=== PATIENT | male | born 1970 | race Caucasian/White ===

== ENCOUNTER 2019-12-26 08:44 | Emergency (ER) | payer OTHER, SELFPAY ==
--- NOTE | ~2019-12-26 | XR_ITS ---
EXAMINATION: XR knee LT min 4V DATE: 12/26/2019 09:16 INDICATION: Twisting injury and generalized left knee pain. TECHNIQUE: Anteroposterior, 2 oblique and crosstable lateral views of the left knee were obtained COMPARISON: None. FINDINGS: Alignment is normal. No fracture. Joint spaces appear normal. No joint effusion/layering lipohemarth rosis. Soft tissues are unremarkable. IMPRESSION: 1. Negative left knee radiographs. Reviewed, dictated and finalized at location A.
[2019-12-26 08:58] VITALS: BP 128/94; PULSE 74; RESP 16; TEMP 36.9; O2SAT 97
--- NOTE | 2019-12-26 09:52 | ED.LOWEXIN ---
HPI - Extremity Injury (Lower) General Chief Complaint: Extremity Injury, Lower Stated Complaint: left knee pain Time Seen by Provider: 12/26/19 09:43 Source: patient and RN notes reviewed Mode of arrival: ambulatory Limitations: no limitations History of Present Illness HPI Narrative: Patient presents today complaining of an injury to his left knee. Injury was sustained approximately 1 month ago when he was getting out of the cab of his 18 wheel truck and slipped. States pain started out posterior. The posterior pain has resolved, but has now spread laterally. Denies numbness or tingling in the leg or foot. Currently rates his pain 8/10. Pain increases with bending or full flexion. He has been taking Aleve without relief. States that he read report at work, but his employer is claiming this is not a Workmen's Compensation claim, so patient is here on his own. MD complaint: knee injury Related Data Home Medications Medication Instructions Recorded Confirmed No Home Medications 12/26/19 12/26/19 Allergies Allergy/AdvReac Type Severity Reaction Status Date / Time No Known Allergies Allergy Verified 12/26/19 09:07 Review of Systems Review of Systems: Narrative: CONSTITUTIONAL: Denies body aches, fever, chills, or sweats. EYES: Denies visual changes, redness, or discharge. ENT: Denies rhinorrhea, congestion, sore throat, or otalgia. CARDIOVASCULAR: Denies chest pain, palpitations, or edema. RESPIRATORY: Denies cough or dyspnea. GASTROINTESTINAL: Denies abdominal pain, nausea, vomiting, or diarrhea. GENITOURINARY: Denies dysuria or hematuria. SKIN: Denies rash, itching, or wounds. MUSCULOSKELETAL: Denies back pain, or myalgia. NEUROLOGIC: Denies headache, numbness, tingling, or weakness. PSYCH: Denies depression or anxiety. PMFSH Social History Social History Gender identity (if verbalized by the patient): Male Comments At time of signature, I have reviewed and agree with nursing past medical, surgical, social and family history unless otherwise noted. Please see nursing chart for further information. There is no relevant family history pertinent to the presenting complaint Exam Narrative: Exam Narrative: GENERAL: Well-appearing, well-nourished, and in no acute distress. HEAD: Normocephalic, atraumatic. EYES: EOMI. No redness or drainage. Conjunctivae normal. ENT: Mucous membranes pink and moist. NECK: Normal AROM. CHEST: No respiratory distress. EXTREMITIES: Left knee: Tenderness to the lateral joint line to palpation. No medial joint line tenderness. No posterior tenderness. No tenderness of the patella or patellar tendon. Distal sensation intact. Capillary refill normal. Posterior tibial pulse normal. Pain increased with full extension and with flexion. SKIN: Warm, dry, no rash. Capillary refill normal. Normal skin turgor. NEURO: No focal deficits. Alert and oriented x3. Gait steady. PSYCH: Normal affect. No signs of depression or anxiety. Course Vital Signs Vital signs: Vital Signs Temperature 98.4 F 12/26/19 08:58 Pulse Rate 74 12/26/19 08:58 Respiratory Rate 16 12/26/19 08:58 Blood Pressure 128/94 H 12/26/19 08:58 Pulse Oximetry 97 12/26/19 08:58 Temperature 98.4 F 12/26/19 08:58 Pulse Rate 74 12/26/19 08:58 Respiratory Rate 16 12/26/19 08:58 Blood Pressure 128/94 H 12/26/19 08:58 Pulse Oximetry 97 12/26/19 08:58 Reviewed. Pt has been instructed to follow up with his PCP regarding his elevated blood pressure today. MDM - Extremity Injury (Lower) Differential Diagnosis Differential diagnosis: Likely other (Knee sprain, knee effusion, dislocation, ligament injury, meniscus injury) Imaging Data Radiologist's impression: ITS Impressions Knee X-Ray 12/26/19 09:19 IMPRESSION: 1. Negative left knee radiographs. Critical Care Time Critical Care Time Critical Care Time: No Discharge Plan Discharge Clinical Impression
== END 2019-12-26 10:06 | disposition home or self-care (01) ==
PROVIDERS: Emergency Provider Nurse Practitioner; PCP Emergency Medicine
DX: S89.92XA Unspecified injury of left lower leg, initial encounter (principal); W18.49XA Other slipping, tripping and stumbling without falling, initial encounter
CPT/HCPCS: 73564; 99213; G0463

== ENCOUNTER 2024-11-13 06:22 | Emergency (ER) | payer OTHER, SELFPAY ==
--- OUTSIDE RECORDS SUMMARY | 2024-11-13 06:25 | XMS_ITS | Data Portability ---
Author Organization [place] [facility] [employer], Main Office Address [address] [place] [address] Care Team Providers Care Public Health Physician Name Role Phone MARSHA JENNINGS Primary Care Provider MARSHA JENNINGS Referring Provider Assessment Encounter Date Assessment Date Assessment LastModified by Organization Details LastModified Time 08/24/2024 08/24/2024 53-year-old male presents for evaluation of his left knee. 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 He has had pain since then. He has tried a course of conservative management he had a cortisone injection about 2 years ago which helped a little bit. He has been taking ibuprofen. He does report catching and popping in his knee, and he was previously told he had a torn meniscus but did not get anything done at that point. Review of systems per patient questionnaire Physical exam: He is 6 ft 2, 400 lb, BMI 51.4. He has tenderness palpation of the medial joint line as well as lateral joint line. Range of motion 0-120, limited by body habitus. Positive Juan M's. Stable ligaments. X-rays reviewed, demonstrating mild degenerative changes of patellofemoral joint and moderate degenerative changes of the medial compartment. He has joint space narrowing and small osteophytes We will begin with a course of conservative management with meloxicam and physical therapy. Orders for those were given. We will see him back in 6 weeks after course of treatment. At that time if he does not have improvement, we would consider doing cortisone injection and/or an MRI. We also discussed weight loss and he understands that he should decrease his BMI. [email or web address] Not available 08/25/2024:00:19 10/12/2024 10/12/2024 53-year-old male presents for follow-up of his left knee. We previously treated him with a course of conservative management with anti-inflammatori es physical therapy. He reports no difference, still having symptoms in his knee. He has tenderness palpation of the medial joint line as well as lateral joint line. Range of motion 0-120, limited by body habitus. Positive Juan M's. Stable ligaments. BMI 51 Given his persistent symptoms despite conservative management so far we discussed the next step would be a cortisone injection which she wanted to proceed with an tolerated well. We will also order MRI to evaluate the soft tissues, ligaments, and menisci. We will see him back after the scan. He is in agreement with the plan. [email or web address] Not available 10/12/2024 14:53:20 Plan of Treatment Reminders Order Date Submit Date Provider Last Modified By Organization Details Last Modified Time Details Appointments None recorded. Lab None recorded. Referral physical therapist referral - Please contact pt to schedule apt for L knee. Thanks 2024 025 [facility] [address], [address], [place], [address], 00:04:21 Procedures injection/ aspiration joint/burs a (PROC) 2024 025 [email or web address] 1 In-Office Order, Internal Use Only DO Not Attach Compendium DO Not Attach Compendium, Do Not Delete/merge, [id number] 14:15:20 Surgeries None recorded. Imaging MRI, knee, w/o contrast - Please provide pt with disc of images to bring to follow up apt. Thanks 2024 025 [facility], [address], [address] [address], [place], [address], 16:23:56 XR, knee 2024 025 [email or web address] [facility] [place], [address], [place], [address], 08:38:42 Medication Orders bupivacain e HCl 0.5 % (5 mg/mL) injection solution [address] [id number], [address], [place], [place], [phone], 23:07:25 Kenalog 10 mg/mL suspension for injection [address] [id number], [address], [place], [place], [phone], 23:07:25 Mobic 15 mg tablet [address] [id number], [address], [place], [place], [phone], 12:27:32 Patient TargetsNo targets recorded. Patient InstructionsNo instructions recorded. Reason for Referral Physical Therapist Referral for Pain of left knee joint L knee Please contact pt to schedule apt for L knee. Thanks Referring Physician: Owen Smith, Orthopedic Surgery, Encounter Date: 08/24/2024 Results Created Date Observation Date Name Description Value Unit Range Abnormal Flag Note LastModifiedBy Organization Detail LastModifiedTime 08/24/19 25 XR, knee No observ ation record ed. [email or web address] [facility] [place] [address], [place], [address], 08/24/2024 11:17:33 Result Notes None recorded. Problems Name Problem SNOMED Code Status Onset Date Resolution Date Notes Provider Name and Address Organization Details Recorded Time Pain of left knee joint [id number] Active 2024 CLAUDETTE Sutton [facility] 11:17:29 Problem Notes None recorded. Procedures Surgical History Date Name Laterality Status Provider Name and Address Organization Details Recorded Time Ortho - Cortisone Injection completed Owen Smith MD [address], [address], [place], [address], [facility] 10/12/2024 14:52:26 Imaging Results Imaging Date Name Status LastModified by Organiz ation Details LastModified Time 08/24/2024 XR, knee completed [email or web address] [facility] [place] [address], [place], [address], 08/24/2024 11:17:33 Procedure Notes None recorded. Medical Equipment None Reported. Allergies No known drug allergies Medications Name Sig Start Date Stop Date Status Note LastModified by Organization Details LastModified Time meloxicam 15 mg tablet TAKE 1 TABLET BY MOUTH EVERY DAY active Not Available Not Available No t Available bupivacaine HCl 0.5 % (5 mg/mL) injection solution Take 4 mL by injection route. 2024 active Not Available Not Available Not Avai lable Kenalog 10 mg/mL suspension for injection Take 1 mL by injection route. 2024 active [facility]: 0003- [id number]- 20 Not Available Not Available Not Available fluticasone propionate 50 mcg/actuati on nasal spray,suspe nsion SHAKE LIQUID AND USE 2 SPRAYS IN EACH NOSTRIL DAILY 08/24 completed Not Available Not Available Not Available Vitals Date Recorded Body height Body mass index (BMI) Body weight Provider Name and Address Organization Details Last Updated DateTime 08/24/2024 187.96 cm 51.4 kg/m2 841106.95 g Saba Coley [facility] 08/24/2024 11:16:12 Date Recorded Body height Body mass index (BMI) Body weight Provider Name and Address Organization Details Last Updated DateTime 10/12/2024 187.96 cm 51.4 kg/m2 337265.95 g ERIKA Kennedy [facility] 10/12/2024 14:02:30 Social History None recorded. Functional Status None recorded. Mental Status None recorded. Family History Nothing Reported. Medical History No medical history recorded. Past Encounters Encounter ID Performer Location Encounter Start Date Encounter Closed Date Diagnosis/Indication Diagnosis SNOMED-CT Code Diagnosis ICD10 Code Diagnosis Note [id number] Owen Smith MD [facility] [place] [address] [place] [address] 08/24/2024 10:58:11 08/24/2024 12:28:18 Pain of left knee joint [id number] 62177 M25.386 [id number] Owen Smith MD [facility] [place] [address] [place] [address] 10/12/2024 13:58:49 10/12/2024 14:58:12 Pain of left knee joint [id number] 82667 M25.562 Health Concerns Section Related Observation LastModified by Organization Detai ls LastModified Time None Recorded Concern Status LastModified by Organization Details LastModified Time None Recorded Advance Directives Directive None Recorded Payers Encounter Date Sequence Insurance Name Policy Number Policy Bella Covered Member ID Bella Member ID Guarantor Name 08/24/2024 1 [facility] [id number] Selwyn Castillo [id number] Selwyn Castillo 10/12/2024 1 [facility] [id number] Selwyn Castillo [id number] Selwyn Castillo
--- OUTSIDE RECORDS SUMMARY | 2024-11-13 06:25 | XMS_ITS | Clinical Summary ---
Author Organization [facility] Address [address] [place] [address] Care Team Providers Care Horse Stud Worker Name Role Phone Sb Harris MD Primary Care Provider [phone] Allergies No known active allergies Medications No known medications Active Problems No known active problems Surgical History Surgery Date Site/Laterality Comments KNEE SURGERY N/A Social History Tobacco Use Types Packs/Day Years Used Date Smoking Tobacco: Former Smokeless Tobacco: Never Personal Safety Answer Date Recorded Getting School Help Needed Not on file 09/11 Sex and Gender Information Value Date Recorded Sex Assigned at Not on file Legal Sex Male 2: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 Gender Identity Male 07/17/2020 12:41 PM PIPED POCKET MACHINE OPERATOR Sexual Orientation Straight 07/17/2020 12 :41 PM PIPED POCKET MACHINE OPERATOR Obstetrics History Last Filed Vital Signs Vital Sign Reading Time Taken Comments Blood Pressure 132/84 07/19/2020 3:12 PM PIPED POCKET MACHINE OPERATOR Pulse 85 07/19/2020 3:12 PM PIPED POCKET MACHINE OPERATOR Temperature 36.5 C (97.7 F) 07/19/2020 3:12 PM PIPED POCKET MACHINE OPERATOR Respiratory Rate - - Oxygen Saturation - - Inhaled Oxygen Concentration - - Weight 161.7 kg (356 lb 6.4 oz) 07/19/2020 3:12 PM PIPED POCKET MACHINE OPERATOR Height 188 cm (6' 2 ) 07/19/2020 3:12 PM PIPED POCKET MACHINE OPERATOR Body Mass Index 45.76 07/19/2020 3:12 PM PIPED POCKET MACHINE OPERATOR Plan of Treatment Not on file Insurance [facility] H[facility]PPO Address: [address] [place] [address] [facility] [facility] H[facility]/PPO Address: [address] [address] [place] [address] Care Teams Horse Stud Worker Relationship Specialty Start Date End Date Sb Harris MD [address] [facility] [address] [place] [address] PCP - General 06/18/18
--- OUTSIDE RECORDS SUMMARY | 2024-11-13 06:25 | XMS_ITS | Referral Summary ---
Author Organization [facility] Address [address] [place] [address] Care Team Providers Care Test Hole Driller Name Role Phone Sb Harris MD Primary Care Provider [phone] Allergies No known active allergies Medications No known medications Active Problems No known active problems Social History Tobacco Use Types Packs/Day Years Used Date Smoking Tobacco: Former Smokeless Tobacco: Never Personal Safety Answer Date Recorded Getting School Help Needed Not on file 09/11 Sex and Gender Information Value Date Recorded Sex Assigned at Not on file Legal Sex Male 2:47 PM BRIGADIER Gender Identity Male 07/17/2020 12:41 PM BRIGADIER Sexual Orientation Straight 07/17/2020 12 :41 PM BRIGADIER Last Filed Vital Signs Vital Sign Reading Time Taken Comments Blood Pressure 132/84 07/19/2020 3:12 PM BRIGADIER Pulse 85 07/19/2020 3:12 PM BRIGADIER Temperature 36.5 C (97.7 F) 07/19/2020 3:12 PM BRIGADIER Respiratory Rate - - Oxygen Saturation - - Inhaled Oxygen Concentration - - Weight 161.7 kg (356 lb 6.4 oz) 07/19/2020 3:12 PM BRIGADIER Height 188 cm (6' 2 ) 07/19/2020 3:12 PM BRIGADIER Body Mass Index 45.76 07/19/2020 3:12 PM BRIGADIER Plan of Treatment Not on file Insurance [facility] H[facility]/PPO Address: [address] [address] [place] [address] [facility] [facility] H[facility]/PPO Address: [address] [address] [place] [address] Care Teams Test Hole Driller Relationship Specialty Start Date End Date Sb Harris MD [address] [facility] [address] [place] [address] PCP - General 06/18/18
--- NOTE | 2024-11-13 06:30 | PC.NURSE ---
Pt presents to ED c/o R calf pain, radiating to thigh area. Pt febrile temp 101.3 oral, has not been able to keep anything down since kiley.
[2024-11-13 06:34] VITALS: BP 153/86; PULSE 109; RESP 22; TEMP 38.5; O2SAT 97
--- NOTE | 2024-11-13 06:46 | ED_ITS ---
HPI - Skin/Abscess/Foreign Bdy General Chief complaint: Extremity Injury, Lower <Beth Stockton MD - Last Filed: 11/13/24 07:07> Stated complaint: rle infection <Beth Stockton MD - Last Filed: 11/13/24 07:07> Time Seen by Provider: 11/13/24 06:29 <Beth Stockton MD - Last Filed: 11/13/24 07:07> History of Present Illness HPI narrative: Thursday patient noticed he was feeling fevers and chills, and a red rash to his right leg that has steadily gotten worse, yesterday he noticed a small blister that he tried to pop nothing came out, today it got worse so he finally came in. <Beth Stockton MD - Last Filed: 11/13/24 07:07> Related Data Allergies/Adverse reactions: Allergies Allergy/AdvReac Type Severity Reaction Status Date / Time No Known Allergies Allergy Verified 05/18/24 11:15 <Beth Stockton MD - Last Filed: 11/13/24 07:07> Review of Systems 2 Review of Systems: All systems reviewed & are unremarkable except as noted in HPI and below <Beth Stockton MD - Last Filed: 11/13/24 07:07> PMFSH Past Medical History Medical History: Medical History (Updated 11/13/24 @ 08:27 by Mary Knight MD) Fungal infection Groin ringworm Rash Skin lesion Conjunctivitis Sinusitis Fatigue Suppurative otitis media of right ear without spontaneous rupture of tympanic membrane Vitamin D deficiency Sinus congestion Primary osteoarthritis involving multiple joints Plantar fasciitis of left foot LUIS E (obstructive sleep apnea) Loud snoring Impacted cerumen of left ear Hypogonadism male Decreased hearing of left ear Daytime sleepiness Cough Screening cholesterol level <Beth Stockotn MD - Last Filed: 11/13/24 07:07> Social History Social History: Social History Smoking status: Never smoker Second hand tobacco smoke exposure: No Alcohol intake: never Substance use: never Substance use type: does not use Do You Feel Safe in your Home?: Yes Lack of Transportation: No Lack of Food: Sometimes True Current Housing: I Have Housing Concerned About Future Housing: YES Difficulty Paying Gas/Electric Bills: YES Difficulty Paying for Meds: YES Currently Unemployed: No Education: High School Diploma/GED Difficulty w/ Childcare or Family Care: No Living arrangements: with family Gender identity (if verbalized by the patient): Male Spiritual care concerns: No Agree to blood products: Yes <Beth Stockton MD - Last Filed: 11/13/24 07:07> Exam 2 Narrative: EXAMINATION OF ORGAN SYSTEMS/BODY AREAS: Constitutional: Vital signs per nursing GENERAL: Appears slightly uncomfortable but nontoxic HEAD: Normal with no signs of head trauma. EYES: EOMI, conjunctiva normal ENT: Hearing grossly intact LUNGS: Nonlabored breathing. HEART: [Regular rate and rhythm], normal right DP pulse ABD: [Soft], [nontender to palpation] EXT: Normal range of motion; no obvious swelling to right lower extremity compared to left but there is redness SKIN: Redness and tenderness to right lower leg, no exquisite tenderness, tiny spot NEURO: [Alert and oriented x 3. No gross focal sensory or strength deficits.] PSYCH: Normal affect <Beth Stockton MD - Last Filed: 11/13/24 07:07> Course Course Emergency Course: Patient signed out to me pending result of labs and reassessment. Lactic acid is normal the patient does have a leukocytosis with white count 15. Patient is reassessed at approximately 8:10 a.m.. He is resting comfortably. The area of infection has been outlined with skin marker and does not cover any joint lines as it remains inferior to knee and superior to ankle. He states he has felt better but overall doing ok. DIscussed / offered admission for continued IV antibiotics but patient would prefer to be discharged home and trial conservative PO antibiotic therapy. Through shared decision making, This is also reasonable and we discussed the need for close follow up as well as strict emergency department return precautions. He confirms he has a PCP. 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 He denies wanting or needing a work note. Vital signs have normalized including fever that has defervesced and is no longer tachycardic. Given the leukocytosis, will provide double coverage of antibiotics. <Mary Knight MD - Last Filed: 11/13/24 08:30> Vital Signs Vital signs: Vital Signs Temperature 101.3 F H 11/13/24 06:34 Pulse Rate 109 H 11/13/24 06:34 Respiratory Rate 22 H 11/13/24 06:34 Blood Pressure 153/86 H 11/13/24 06:34 Pulse Oximetry 97 11/13/24 06:34 Temperature 99.1 F 11/13/24 08:21 Pulse Rate 95 11/13/24 08:21 Respiratory Rate 19 11/13/24 08:21 Blood Pressure 121/72 11/13/24 08:21 Pulse Oximetry 98 11/13/24 08:21 <Beth Stockton MD - Last Filed: 11/13/24 07:07> Vital Signs Temperature 101.3 F H 11/13/24 06:34 Pulse Rate 109 H 11/13/24 06:34 Respiratory Rate 22 H 11/13/24 06:34 Blood Pressure 153/86 H 11/13/24 06:34 Pulse Oximetry 97 11/13/24 06:34 Temperature 99.1 F 11/13/24 08:21 Pulse Rate 95 11/13/24 08:21 Respiratory Rate 19 11/13/24 08:21 Blood Pressure 121/72 11/13/24 08:21 Pulse Oximetry 98 11/13/24 08:21 <Mary Knight MD - Last Filed: 11/13/24 08:30> MDM - Skin/Abscess/Foreign Bdy MDM Narrative Medical decision making narrative: Patient presenting with signs, symptoms consistent with cellulitis, but he does have a fever here and is tachycardic so sepsis workup initiated, fluid started, IV antibiotics ordered. Will jaylin area of infection with skin marker. Patient will be signed out to oncoming ER physician pending re-evaluation and labs. <Beth Stockton MD - Last Filed: 11/13/24 07:07> Lab Data Result diagrams: 11/13/24 06:57 11/13/24 06:57 <Beth Stockton MD - Last Filed: 11/13/24 07:07> Labs: Lab Results 11/13/24 Range/Units 06:57 WBC 15.0 H (4.5-10.0) K/mm3 RBC 4.75 (4.6-6.20) M/mm3 Hgb 13.6 L (14.0-18.0) g/dL Hct 43.2 (42.0-52.0) % MCV 90.9 (80-100) fl MCH 28.6 (26-34) pg MCHC 31.5 L (32-36) g/dl RDW 13.7 (11.5-14.5) % Plt Count 192 (150-375) k/mm3 MPV 8.9 (7.4-10.4) fl Immature Gran % (Auto) Not Reportable Neut % (Auto) Not Reportable Lymph % (Auto) Not Reportable Heard % (Auto) Not Reportable Eos % (Auto) Not Reportable Baso % (Auto) Not Reportable Lymph # (Auto) Not Reportable Heard # (Auto) Not Reportable Eos # (Auto) Not Reportable Baso # (Auto) Not Reportable Abs Immat Gran (auto) Not Reportable Absolute Neuts (auto) Not Reportable Absolute Nucleated RBC Not Reportable Total Counted 100 Neutrophils % (Manual) 84 H (46-73) % Band Neutrophils % 11 H (0-6) % Lymphocytes % (Manual) 3 L (18-44) % Monocytes % (Manual) 2 L (3-9) % Nucleated RBC % Not Reportable Abs Neuts (Manual) 14.25 H (1.3-6.7) K/mm3 Abs Lymphs (Manual) 0.45 L (1.1-4.5) K/mm3 Abs Monocytes (Manual) 0.30 (0.1-0.90) K/mm3 Platelet Estimate Adequate (Adequate) Schistocytes None seen Sodium 132 L (137-145) mmol/L Potassium 3.8 (3.4-5.0) mmol/L Chloride 101 (98-107) mmol/L Carbon Dioxide 23 (22-30) mmol/L Anion Gap 8 (4-12) mmol/L BUN 21 H (9-20) mg/dL Creatinine 0.94 (0.7-1.3) mg/dL Estim Creat Clear Calc 140 ml/min Estimated GFR > 60 (59 - ) Glucose 122 H (65-110) mg/dL Lactic Acid 1.0 (0.7-2.0) mmol/L Calcium 8.9 (8.4-10.2) mg/dL Total Bilirubin 1.2 (0.2-1.3) mg/dL AST 32 (17-59) U/L ALT 35 (6-50) U/L Alkaline Phosphatase 72 (38-126) U/L Total Protein 8.0 (6.3-8.2) g/dL Albumin 4.1 (3.5-5.1) g/dL <Beth Stockton MD - Last Filed: 11/13/24 07:07> Lab Results 11/13/24 Range/Units 06:57 WBC 15.0 H (4.5-10.0) K/mm3 RBC 4.75 (4.6-6.20) M/mm3 Hgb 13.6 L (14.0-18.0) g/dL Hct 43.2 (42.0-52.0) % MCV 90.9 (80-100) fl MCH 28.6 (26-34) pg MCHC 31.5 L (32-36) g/dl RDW 13.7 (11.5-14.5) % Plt Count 192 (150-375) k/mm3 MPV 8.9 (7.4-10.4) fl Immature Gran % (Auto) Not Reportable Neut % (Auto) Not Reportable Lymph % (Auto) Not Reportable Heard % (Auto) Not Reportable Eos % (Auto) Not Reportable Baso % (Auto) Not Reportable Lymph # (Auto) Not Reportable Heard # (Auto) Not Reportable Eos # (Auto) Not Reportable Baso # (Auto) Not Reportable Abs Immat Gran (auto) Not Reportable Absolute Neuts (auto) Not Reportable Absolute Nucleated RBC Not Reportable Total Counted 100 Neutrophils % (Manual) 84 H (46-73) % Band Neutrophils % 11 H (0-6) % Lymphocytes % (Manual) 3 L (18-44) % Monocytes % (Manual) 2 L (3-9) % Nucleated RBC % Not Reportable Abs Neuts (Manual) 14.25 H (1.3-6.7) K/mm3 Abs Lymphs (Manual) 0.45 L (1.1-4.5) K/mm3 Abs Monocytes (Manual) 0.30 (0.1-0.90) K/mm3 Platelet Estimate Adequate (Adequate) Schistocytes None seen Sodium 132 L (137-145) mmol/L Potassium 3.8 (3.4-5.0) mmol/L Chloride 101 (98-107) mmol/L Carbon Dioxide 23 (22-30) mmol/L Anion Gap 8 (4-12) mmol/L BUN 21 H (9-20) mg/dL Creatinine 0.94 (0.7-1.3) mg/dL Estim Creat Clear Calc 140 ml/min Estimated GFR > 60 (59 - ) Glucose 122 H (65-110) mg/dL Lactic Acid 1.0 (0.7-2.0) mmol/L Calcium 8.9 (8.4-10.2) mg/dL Total Bilirubin 1.2 (0.2-1.3) mg/dL AST 32 (17-59) U/L ALT 35 (6-50) U/L Alkaline Phosphatase 72 (38-126) U/L Total Protein 8.0 (6.3-8.2) g/dL Albumin 4.1 (3.5-5.1) g/dL <Mary Knight MD - Last Filed: 11/13/24 08:30> Critical Care Time Critical Care Time Critical Care Time: Yes <Beth Stockton MD - Last Filed: 11/13/24 07:07> Total Critical Care Time: 31 <Beth Stockton MD - Last Filed: 11/13/24 07:07> Discharge Plan Discharge Clinical Impression: Sepsis, Acute hyponatremia, Leukocytosis Cellulitis Qualifiers: Site of cellulitis: extremity Site of cellulitis of extremity: lower extremity Laterality: right Qualified Code(s): L03.115 - Cellulitis of right lower limb <Beth Stockton MD - Last Filed: 11/13/24 07:07> Patient Disposition: Home <Beth Stockton MD - Last Filed: 11/13/24 07:07> Condition: Stable <Beth Stockton MD - Last Filed: 11/13/24 07:07> Instructions: Antibiotic Form, Cellulitis (ED), Hyponatremia (ED), Sepsis (DC), Leukocytosis (ED) <Beth Stockton MD - Last Filed: 11/13/24 07:07> Additional Instructions: As we discussed, you received 1st dose of IV antibiotics and the rest of the course of oral antibiotics (two) has been prescribed. You will trial this and I recommend you follow-up with your primary care physician for a check of the infection in the next 1-2 days. If the infection spreads or if you have any new or worsening symptoms, you are to return to the emergency department as he would likely require admission for IV antibiotics. <Beth Stockton MD - Last Filed: 11/13/24 07:07> Patient Language: Mozambican <Beth Stockton MD - Last Filed: 11/13/24 07:07> Prescriptions: New cephalexin 500 mg capsule 500 mg PO Q6H 5 Days Qty: 20 0RF sulfamethoxazole-trimethoprim 800-160 mg tablet 1 tablet PO Q12H 5 Days Qty: 10 0RF <Beth Stockton MD - Last Filed: 11/13/24 07:07> Follow-up/Referrals: Osmany Bhakta MD [Primary Care Provider] - <Beth Stockton MD - Last Filed: 11/13/24 07:07> Time of Disposition: 08:29 <Beth Stockton MD - Last Filed: 11/13/24 07:07> 08:29 <Mary Knight MD - Last Filed: 11/13/24 08:30>
[2024-11-13] MEDS: ACETAMINOPHEN 500 MG TABLET 1000 MG PO (06:58)
[2024-11-13] MEDS: LACTATED RINGERS 1,000 ML 999 ML IV CONT (06:58)
--- OUTSIDE RECORDS SUMMARY | 2024-11-13 07:01 | XMS_ITS | Clinical Summary ---
Author Organization [facility] Address [address] [place] [address] Care Team Providers Care Electrical Equipment Technician Name Role Phone Sb Harris MD Primary Care Provider [phone] Allergies No known active allergies Medications No [...] on file Legal Sex Male 2:47 PM NAIL POLISH BRUSH MACHINE FEEDER Gender Identity Male 07/17/2020 12:41 PM NAIL POLISH BRUSH MACHINE FEEDER Sexual Orientation Straight 07/17/2020 12 :41 PM NAIL POLISH BRUSH MACHINE FEEDER Obstetrics History Last Filed Vital Signs Vital Sign Reading Time Taken Comments Blood Pressure 132/84 07/19/2020 3:12 PM NAIL POLISH BRUSH MACHINE FEEDER Pulse 85 07/19/2020 3:12 PM NAIL POLISH BRUSH MACHINE FEEDER Temperature 36.5 C (97.7 F) 07/19/2020 3:12 PM NAIL POLISH BRUSH MACHINE FEEDER Respiratory Rate - - Oxygen Saturation - - Inhaled Oxygen Concentration - - Weight 161.7 kg (356 lb 6.4 oz) 07/19/2020 3:12 PM NAIL POLISH BRUSH MACHINE FEEDER Height 188 cm (6' 2 ) 07/19/2020 3:12 PM NAIL POLISH BRUSH MACHINE FEEDER Body Mass Index 45.76 07/19/2020 3:12 PM NAIL POLISH BRUSH MACHINE FEEDER Plan of Treatment Not on file Insurance [facility] CHOICE PLUS CHOICE PLUS Care Teams Electrical Equipment Technician Relationship Specialty Start Date End Date Sb Harris MD [address] [facility] [address] [place] [address] PCP - General 06/18/18
--- OUTSIDE RECORDS SUMMARY | 2024-11-13 07:01 | XMS_ITS | Referral Summary ---
Author Organization [facility] Address [address] [place] [address] Care Team Providers Care Diet Kitchen Cook Name Role Phone Sb Harris MD Primary Care Provider [phone] Allergies No known active allergies Medications No known medications Active Problems No known active problems Social History Tobacco Use Types Packs/Day Years Used Date Smoking Tobacco: Former Smokeless Tobacco: Never Personal Safety Answer Date Recorded Getting School Help Needed Not on file 09/11 Sex and Gender Information Value Date Recorded Sex Assigned at Not on file Legal Sex Male 2:47 PM FREIGHT HANDLER Gender Identity Male 07/17/2020 12:41 PM FREIGHT HANDLER Sexual Orientation Straight 07/17/2020 12 :41 PM FREIGHT HANDLER Last Filed Vital Signs Vital Sign Reading Time Taken Comments Blood Pressure 132/84 07/19/2020 3:12 PM FREIGHT HANDLER Pulse 85 07/19/2020 3:12 PM FREIGHT HANDLER Temperature 36.5 C (97.7 F) 07/19/2020 3:12 PM FREIGHT HANDLER Respiratory Rate - - Oxygen Saturation - - Inhaled Oxygen Concentration - - Weight 161.7 kg (356 lb 6.4 oz) 07/19/2020 3:12 PM FREIGHT HANDLER Height 188 cm (6' 2 ) 07/19/2020 3:12 PM FREIGHT HANDLER Body Mass Index 45.76 07/19/2020 3:12 PM FREIGHT HANDLER Plan of Treatment Not on file Insurance [facility] CHOICE PLUS CHOICE PLUS Care Teams Diet Kitchen Cook Relationship Specialty Start Date End Date Sb Harris MD [address] [facility] [address] [place] [address] PCP - General 06/18/18
[2024-11-13 07:04] LABS: Hematocrit 43.2 % (42.0-52.0); Hemoglobin 13.6 g/dL (14.0-18.0); Mean Corpuscular HGB Conc 31.5 g/dl (32-36); Mean Corpuscular Hemoglobin 28.6 pg (26-34); Mean Corpuscular Volume 90.9 fl (80-100); Mean Platelet Volume 8.9 fl (7.4-10.4); Platelet Count Result 192 k/mm3 (150-375); Red Blood Count 4.75 M/mm3 (4.6-6.20); Red Cell Distribution Width 13.7 % (11.5-14.5)
[2024-11-13] MEDS: ceFAZolin 2 GM/D5W 50 ML 2 GM/50 ML BAG IVPB (07:07)
[2024-11-13 07:19] LABS: Alanine Aminotransferase 35 U/L (6-50); Albumin Level 4.1 g/dL (3.5-5.1); Alkaline Phosphatase 72 U/L (38-126); Anion Gap 8 mmol/L (4-12); Aspartate Amino Transferase 32 U/L (17-59); Bilirubin,Total 1.2 mg/dL (0.2-1.3); Blood Urea Nitrogen 21 mg/dL (9-20); Calcium 8.9 mg/dL (8.4-10.2); Carbon Dioxide 23 mmol/L (22-30); Chloride 101 mmol/L (98-107); Estimated CRCL calculation 140 ml/min; Estimated Glomerular Filt Rate > 60; Glucose 122 mg/dL (65-110); Potassium 3.8 mmol/L (3.4-5.0); Sodium 132 mmol/L (137-145)
[2024-11-13 07:42] LABS: Band Neutrophils Percent 11 % (0-6); Lymphocytes Absolute Manual 0.45 K/mm3 (1.1-4.5); Lymphocytes Percent Manual 3 % (18-44); Monocytes Percent Manual 2 % (3-9); Neutrophils Absolute Manual 14.25 K/mm3 (1.3-6.7); Neutrophils Percent Manual 84 % (46-73); Platelet Estimate Adequate (Adequate); Schistocytes None Seen; Total Cells Counted 100
[2024-11-13 08:21] VITALS: BP 121/72; PULSE 95; RESP 19; TEMP 37.3; O2SAT 98
[2024-11-13 08:35] VITALS: BP 130/66; PULSE 95; RESP 19; O2SAT 100
== END 2024-11-13 08:37 | disposition home or self-care (01) ==
PROVIDERS: Emergency Medicine; Emergency Provider Student in an Organized Health Care Education/Training Program; PCP Emergency Medicine
DX: A41.9 Sepsis, unspecified organism (principal); E87.1 Hypo-osmolality and hyponatremia; D72.829 Elevated white blood cell count, unspecified; L03.115 Cellulitis of right lower limb; E55.9 Vitamin D deficiency, unspecified; G47.33 Obstructive sleep apnea (adult) (pediatric)
CPT/HCPCS: 36415; 80053; 83605; 85025; 87040; 96365; 99284; A9270; J0690; J7120

== ENCOUNTER 2024-11-13 16:33 | Inpatient (IN) | payer OTHER, SELFPAY ==
--- NOTE | ~2024-11-13 | US_ITS ---
EXAMINATION:US venous doppler LE BI INDICATION:Right calf pain and redness with swelling. Evaluate for DVT. TECHNIQUE: Multiple grayscale, color flow and Doppler images of the right and left lower extremity de ep venous systems were obtained and reviewed. COMPARISON:No prior studies for comparison. FINDINGS: The common femoral, superficial femoral and popliteal veins demonstrate normal respiratory variation, augmentation and compressibility. Color flow is also seen within the posterior tibial, pe roneal, greater saphenous and profunda veins. IMPRESSION: 1: No lower extremity deep venous thrombosis. Reviewed, dictated and finalized at location []
--- NOTE | ~2024-11-13 | US_ITS ---
EXAMINATION: US venous doppler LE RT DATE: 11/14/2024 11:50 INDICATION: Pain, redness and swelling TECHNIQUE: Grayscale ultrasound images without and with compression and Doppler ultrasound images of the right lower extremity veins were obtained. COMPARISON: None. FINDINGS: The visualized portions of right common femoral vein, profunda (deep) femoral vein, femoral vein, pop liteal vein, peroneal veins, posterior tibial veins, and greater saphenous vein outflow are patent. IMPRESSION: 1. No deep venous thrombosis. Reviewed, dictated and finalized at location A.
[2024-11-13 16:35] VITALS: BP 149/87; PULSE 108; RESP 20; TEMP 38.1; O2SAT 97
--- OUTSIDE RECORDS SUMMARY | 2024-11-13 16:35 | XMS_ITS | Clinical Summary ---
Author Organization [facility] Address [address] [place] [address] Care Team Providers Care Director Microbiology Name Role Phone Sb Harris MD Primary Care Provider [phone] Allergies No known active allergies Medications No [...] on file Legal Sex Male 2:47 PM LEGAL BILLING CLERK Gender Identity Male 07/17/2020 12:41 PM LEGAL BILLING CLERK Sexual Orientation Straight 07/17/2020 12 :41 PM LEGAL BILLING CLERK Obstetrics History Last Filed Vital Signs Vital Sign Reading Time Taken Comments Blood Pressure 132/84 07/19/2020 3:12 PM LEGAL BILLING CLERK Pulse 85 07/19/2020 3:12 PM LEGAL BILLING CLERK Temperature 36.5 C (97.7 F) 07/19/2020 3:12 PM LEGAL BILLING CLERK Respiratory Rate - - Oxygen Saturation - - Inhaled Oxygen Concentration - - Weight 161.7 kg (356 lb 6.4 oz) 07/19/2020 3:12 PM LEGAL BILLING CLERK Height 188 cm (6' 2 ) 07/19/2020 3:12 PM LEGAL BILLING CLERK Body Mass Index 45.76 07/19/2020 3:12 PM LEGAL BILLING CLERK Plan of Treatment Not on file Insurance [facility] CHOICE PLUS [facility] HMO/PPO Address: [address] [place] [address] CHOICE PLUS [facility] HMO/PPO Address: [address] [address] [place] [address] Care Teams Director Microbiology Relationship Specialty Start Date End Date Sb Harris MD [address] [facility] [address] [place] [address] PCP - General 06/18/18
--- OUTSIDE RECORDS SUMMARY | 2024-11-13 16:35 | XMS_ITS | Referral Summary ---
Author Organization [facility] Address [address] [place] [address] Care Team Providers Care Technical Account Representative Name Role Phone Sb Harris MD Primary Care Provider [phone] Allergies No known active allergies Medications No known medications Active Problems No known active problems Social History Tobacco Use Types Packs/Day Years Used Date Smoking Tobacco: Former Smokeless Tobacco: Never Personal Safety Answer Date Recorded Getting School Help Needed Not on file 09/11 Sex and Gender Information Value Date Recorded Sex Assigned at Not on file Legal Sex Male 2:47 PM RELIEF SALESPERSON Gender Identity Male 07/17/2020 12:41 PM RELIEF SALESPERSON Sexual Orientation Straight 07/17/2020 12 :41 PM RELIEF SALESPERSON Last Filed Vital Signs Vital Sign Reading Time Taken Comments Blood Pressure 132/84 07/19/2020 3:12 PM RELIEF SALESPERSON Pulse 85 07/19/2020 3:12 PM RELIEF SALESPERSON Temperature 36.5 C (97.7 F) 07/19/2020 3:12 PM RELIEF SALESPERSON Respiratory Rate - - Oxygen Saturation - - Inhaled Oxygen Concentration - - Weight 161.7 kg (356 lb 6.4 oz) 07/19/2020 3:12 PM RELIEF SALESPERSON Height 188 cm (6' 2 ) 07/19/2020 3:12 PM RELIEF SALESPERSON Body Mass Index 45.76 07/19/2020 3:12 PM RELIEF SALESPERSON Plan of Treatment Not on file Insurance [facility] CHO[facility] H[facility]/PPO Address: [address] [address] [place] [address] [facility] H[facility]/PPO Address: [address] [address] [place] [address] Care Teams Technical Account Representative Relationship Specialty Start Date End Date Sb Harris MD [address] [facility] [address] [place] [address] PCP - General 06/18/18
--- NOTE | 2024-11-13 16:46 | ED_ITS ---
HPI - Extremity Problem General Chief complaint: Extremity Problem,Nontraumatic Stated complaint: RLE swollen and red Time Seen by Provider: 11/13/24 16:40 Source: patient and family () Mode of arrival: ambulatory Limitations: no limitations History of Present Illness HPI Narrative: Patient presents with RLE swelling and redness. Here earlier and, after discussion of admission versus discharge with strict follow up / return precautions. Had elected to be discharged with PO Abx x2 after receiving 1 dose IV antibiotics. Took a dose of both antibiotcs at approximately 12noon. Now returns with spreading infection, including up R thigh as well as nausea, chills, feeling clammy and febrile. Related Data Allergies Allergy/AdvReac Type Severity Reaction Status Date / Time No Known Allergies Allergy Verified 11/13/24 18:33 [facility] Past Medical History Medical History (Updated 11/16/24 @ 17:32 by Mary Knight MD) Fungal infection Groin ringworm Rash Skin lesion Conjunctivitis Sinusitis Fatigue Suppurative otitis media of right ear without spontaneous rupture of tympanic membrane Vitamin D deficiency Sinus congestion Primary osteoarthritis involving multiple joints Plantar fasciitis of left foot LUIS E (obstructive sleep apnea) Loud snoring Impacted cerumen of left ear Hypogonadism male Decreased hearing of left ear Daytime sleepiness Cough Screening cholesterol level Family History Family History (Updated 11/13/24 @ 18:25 by Aleyda Tello RN) Mother Uterine cancer Social History Social History Smoking status: Former smoker Tobacco type: cigarettes Second hand tobacco smoke exposure: No Smoking end date: 11/13/94 Alcohol intake: never Substance use: never Substance use type: does not use Do You Feel Safe in your Home?: Yes Lack of Transportation: No Lack of Food: Never True Current Housing: I Have Housing Concerned About Future Housing: No Difficulty Paying Gas/Electric Bills: No Difficulty Paying for Meds: No Currently Unemployed: No Education: Don't Know Difficulty w/ Childcare or Family Care: No Living arrangements: with family Gender identity (if verbalized by the patient): Male Spiritual care concerns: No Agree to blood products: Yes Exam 2 Narrative: GENERAL: Well-appearing, well-nourished, and in no acute distress. HEAD: Normocephalic, atraumatic. EYES: Non injected, non icteric ENT: Nares clear, no rhinorrhea or epistaxis. NECK: Supple. CHEST: Speaking in full sentences. No respiratory distress. HEART: Tachycardic rate and rhythm. . ABDOMEN: Soft, nondistended. EXTREMITIES: Normal range of motion. SKIN: Warm, dry, no rash. Cellulitc rash now spread beyond area earlier marked, on R lower extremity. Also faint erythema along medial right thigh. Warm to the touch. NEURO: No focal deficits. Alert and oriented x3. Ambulating with steady gait. PSYCH: Normal mood and affect. Course Vital Signs Vital signs: Vital Signs Temperature 100.6 F H 11/13/24 16:35 Pulse Rate 108 H 11/13/24 16:35 Respiratory Rate 20 11/13/24 16:35 Blood Pressure 149/87 H 11/13/24 16:35 Pulse Oximetry 97 11/13/24 16:35 Oxygen Delivery Room Air 11/13/24 16:35 Temperature 97 F L 11/16/24 14:00 Pulse Rate 82 11/16/24 14:00 Respiratory Rate 20 11/16/24 14:00 Blood Pressure 140/98 H 11/16/24 14:00 Pulse Oximetry 99 11/16/24 14:00 Oxygen Delivery Room Air 11/16/24 08:00 Fraction of Inspired Oxygen 11/14/24 20:00 MDM - Extremity (Nontraumatic) MDM Narrative Medical decision making narrative: Patient presents with worsening cellulitis. Had strongly considered admission earlier this morning and had discussed this with the patient but ultimately through shared decision making patient has elected to be discharged home after 1 dose of IV antibiotics to trial p.o. antibiotics. Did take one dose (x2 antibiotics, given concern for possible MRSA) at approximately 12noon. In the emergency department he is afebrile with vital signs notable for mild tachycardia. His blood pressure is acceptable, in fact mild hypertension. Acetaminophen and ondansetron initially ordered for pain/fever and nausea respectively. Patient will require admission for failing outpatient therapy. Vancomycin, pharmacy to dose, is ordered. Blood cultures had been obtained during this morning's ED visit so no need to repeat. Patient also has some tenderness streaking and spreading up into the thigh. This may represent concomitant thrombophlebitis and/or possible DVT. US not available currently (not until tomorrow morning). Discussed patient with contact agent hospitalist Aziza for admission. Will order D dimer which will be followed up on to decide on need to pursue obtaining US study when available tomorrow morning. Lab Data 11/16/24 06:02 11/16/24 06:02 Labs: Lab Results 11/13/24 11/14/24 Range/Units 17:53 06:09 WBC 11.7 H (4.5-10.0) K/mm3 RBC 4.26 L (4.6-6.20) M/mm3 Hgb 12.4 L (14.0-18.0) g/dL Hct 39.2 L (42.0-52.0) % MCV 92.0 (80-100) fl MCH 29.1 (26-34) pg MCHC 31.6 L (32-36) g/dl RDW 13.8 (11.5-14.5) % Plt Count 193 (150-375) k/mm3 MPV 9.1 (7.4-10.4) fl Immature Gran % (Auto) 0.4 (0-0.5) % Neut % (Auto) 84.5 H (45.5-73.1) % Lymph % (Auto) 8.1 L (18.3-44.2) % [place] % (Auto) 6.5 (2.6-8.5) % Eos % (Auto) 0.3 (0-4.4) % Baso % (Auto) 0.2 (0.2-1.2) % Lymph # (Auto) 0.94 (0.9-3.2) K/mm3 [place] # (Auto) 0.8 H (0.1-0.6) K/mm3 Eos # (Auto) 0.0 (0-0.3) K/mm3 Baso # (Auto) 0.0 (0.0-0.1) K/mm3 Abs Immat Gran (auto) 0.05 H (0.00-0.031) K/mm3 Absolute Neuts (auto) 9.9 H (1.3-6.7) K/mm3 Absolute Nucleated RBC 0.000 (0.0-0.012) K/mm3 Nucleated RBC % 0.0 (0.0-0.2) % D-Dimer 0.78 H (<0.48) ug/mL Sodium 133 L (137-145) mmol/L Potassium 3.9 (3.4-5.0) mmol/L Chloride 101 (98-107) mmol/L Carbon Dioxide 25 (22-30) mmol/L Anion Gap 7 (4-12) mmol/L BUN 14 D (9-20) mg/dL Creatinine 1.04 (0.7-1.3) mg/dL Estim Creat Clear Calc 124 ml/min Estimated GFR > 60 (59 - ) Glucose 105 (65-110) mg/dL Calcium 8.3 L (8.4-10.2) mg/dL Discharge Plan Discharge Clinical Impression: Cellulitis of leg, right Patient Disposition: Still a Patient Condition: Stable
--- OUTSIDE RECORDS SUMMARY | 2024-11-13 17:09 | XMS_ITS | Clinical Summary ---
Author Organization [facility] Address [address] [place] [address] Care Team Providers Care Senior System Operator Name Role Phone Sb Harris MD Primary Care Provider [phone] Allergies No known active allergies Medications No [...] on file Legal Sex Male 2:47 PM DRESSER TENDER Gender Identity Male 07/17/2020 12:41 PM DRESSER TENDER Sexual Orientation Straight 07/17/2020 12 :41 PM DRESSER TENDER Obstetrics History Last Filed Vital Signs Vital Sign Reading Time Taken Comments Blood Pressure 132/84 07/19/2020 3:12 PM DRESSER TENDER Pulse 85 07/19/2020 3:12 PM DRESSER TENDER Temperature 36.5 C (97.7 F) 07/19/2020 3:12 PM DRESSER TENDER Respiratory Rate - - Oxygen Saturation - - Inhaled Oxygen Concentration - - Weight 161.7 kg (356 lb 6.4 oz) 07/19/2020 3:12 PM DRESSER TENDER Height 188 cm (6' 2 ) 07/19/2020 3:12 PM DRESSER TENDER Body Mass Index 45.76 07/19/2020 3:12 PM DRESSER TENDER Plan of Treatment Not on file Insurance [facility] CHOICE PLUS CHOICE PLUS Care Teams Senior System Operator Relationship Specialty Start Date End Date Sb Harris MD [address] [facility] [address] [place] [address] PCP - General 06/18/18
--- OUTSIDE RECORDS SUMMARY | 2024-11-13 17:09 | XMS_ITS | Referral Summary ---
Author Organization [facility] Address [address] [place] [address] Care Team Providers Care Dining Service Worker Name Role Phone Sb Harris MD Primary Care Provider [phone] Allergies No known active allergies Medications No known medications Active Problems No known active problems Social History Tobacco Use Types Packs/Day Years Used Date Smoking Tobacco: Former Smokeless Tobacco: Never Personal Safety Answer Date Recorded Getting School Help Needed Not on file 09/11 Sex and Gender Information Value Date Recorded Sex Assigned at Not on file Legal Sex Male 2:47 PM DATABASE ADMINISTRATION PROJECT MANAGER Gender Identity Male 07/17/2020 12:41 PM DATABASE ADMINISTRATION PROJECT MANAGER Sexual Orientation Straight 07/17/2020 12 :41 PM DATABASE ADMINISTRATION PROJECT MANAGER Last Filed Vital Signs Vital Sign Reading Time Taken Comments Blood Pressure 132/84 07/19/2020 3:12 PM DATABASE ADMINISTRATION PROJECT MANAGER Pulse 85 07/19/2020 3:12 PM DATABASE ADMINISTRATION PROJECT MANAGER Temperature 36.5 C (97.7 F) 07/19/2020 3:12 PM DATABASE ADMINISTRATION PROJECT MANAGER Respiratory Rate - - Oxygen Saturation - - Inhaled Oxygen Concentration - - Weight 161.7 kg (356 lb 6.4 oz) 07/19/2020 3:12 PM DATABASE ADMINISTRATION PROJECT MANAGER Height 188 cm (6' 2 ) 07/19/2020 3:12 PM DATABASE ADMINISTRATION PROJECT MANAGER Body Mass Index 45.76 07/19/2020 3:12 PM DATABASE ADMINISTRATION PROJECT MANAGER Plan of Treatment Not on file Insurance [facility] CHOICE PLUS CHOICE PLUS Care Teams Dining Service Worker Relationship Specialty Start Date End Date Sb Harris MD [address] [facility] [address] [place] [address] PCP - General 06/18/18
--- NOTE | 2024-11-13 17:16 | PC.NURSE ---
Pt. brought into triage room to be assessed by Dr. Knight.
[2024-11-13] MEDS: ONDANSETRON HCL ODT 4 MG TABLET PO (17:24)
[2024-11-13] MEDS: ACETAMINOPHEN 500 MG TABLET 1000 MG PO (17:25)
--- NOTE | 2024-11-13 17:49 | P.HP_ITS ---
H&P: HPI History of Present Illness Date/Time: 11/13/24 17:49 Chief Complaint: Right lower leg pain Narrative: 53-year-old male with past medical history of LUIS E presents to the hospital with cellulitis of his leg. Patient originally presented to the ED this morning and was treated with outpatient antibiotics and went home. This afternoon he return due to nausea vomiting and a fever and worsening cellulitis of right lower leg. Patient complains of redness is going up his leg and has definitely increased since he has left the emergency room. Patient endorses rigors, nausea and vomiting. Lab work showed leukocytosis at 15, anemia hemoglobin 13.6, sodium of 132, BUN of 21, D-dimer elevated. Review of Systems Review of Systems: 12 systems were reviewed and are negativ e except for as per HPI. [facility] Past Medical History Medical History (Updated 11/13/24 @ 22:18 by Aziza Hunt, DRAMA CRITIC) Fungal infection Groin ringworm Rash Skin lesion Conjunctivitis Sinusitis Fatigue Suppurative otitis media of right ear without spontaneous rupture of tympanic membrane Vitamin D deficiency Sinus congestion Primary osteoarthritis involving multiple joints Plantar fasciitis of left foot LUIS E (obstructive sleep apnea) Loud snoring Impacted cerumen of left ear Hypogonadism male Decreased hearing of left ear Daytime sleepiness Cough Screening cholesterol level Family History Family History (Updated 11/13/24 @ 18:25 by Aleyda Tello RN) Mother Uterine cancer Social History Social History Smoking status: Former smoker Tobacco type: cigarettes Second hand tobacco smoke exposure: No Smoking end date: 11/13/94 Alcohol intake: never Substance use: never Substance use type: does not use Do You Feel Safe in your Home?: Yes Lack of Transportation: No Lack of Food: Never True Current Housing: I Have Housing Concerned About Future Housing: No Difficulty Paying Gas/Electric Bills: No Difficulty Paying for Meds: No Currently Unemployed: No Education: Don't Know Difficulty w/ Childcare or Family Care: No Living arrangements: with family Gender identity (if verbalized by the patient): Male Spiritual care concerns: No Agree to blood products: Yes Meds Home Medications and Allergies Home Medications ?Medication ?Instructions ?Recorded ?Confirmed ?Type cephalexin 500 mg capsule 500 mg PO Q6H 5 days #20 caps 11/13/24 11/13/24 Rx sulfamethoxazole 800 1 tablet PO Q12H 5 days #10 tabs 11/13/24 11/13/24 Rx mg-trimethoprim 160 mg tablet Allergies Allergy/AdvReac Type Severity Reaction Status Date / Time No Known Allergies Allergy Verified 11/13/24 18:33 Vital Signs Vital Signs - 24 hr 11/13/24 16:35 Temperature 100.6 F H Pulse Rate 108 H Respiratory Rate 20 Blood Pressure 149/87 H Pulse Oximetry 97 Oxygen Delivery Room Air Exam Narrative: General: well appearing, appears stated age. HEENT: normocephalic, atraumatic. Mucous membranes moist. EOMI, PERRLA, bilateral sclera anicteric, no conjunctival injection. Neck supple without JVD, lymphadenopathy, or bruit. Respiratory: clear to ascultation bilaterally. No rales/rhonic/wheezes. Cardiovascular: Regular rate and rhythm, normal S1-S2 upon ascultation. No murmurs, rubs, or clicks. PMI is nondisplaced, capillary refill less than 3 second. Abdomen: Soft, round, no pulsatile masses, nondistended and nontender. No rebound, no guarding. No CVA tenderness, no hepatosplenomegaly. Bowel sounds present to all four quadrants. No high pitch or tinkling sounds, resonant to percussion. Extremities: No cyanosis, clubbing, or edema present. Pulses are palpable 2/2. Active ROM to all four extremities. Right Lower extremity erythema and swelling Neuro: Alert and orientated x 4. PERRLA. Cranial nerves 2-12 intact without focal deficit. Skin: Warm, dry, and intact, without rash, erythema, or lesion. Psych: pleasant, cooperative, normal speech, normal affect, no hallucinations, no dysarthia Assessment and Plan Assessment and plan (1) Cellulitis: Qualifiers: Laterality: right Site of cellulitis: extremity Site of cellulitis of extremity: lower extremity Qualified Code(s): L03.115 - Cellulitis of right lower limb Code(s): L03.90 - Cellulitis, unspecified Status: Acute Assessment and Plan: A lower extremity, failed outpatient antibiotics due to nausea vomiting Blood cultures pending Patient given vancomycin emergency room (2) Fever: Code(s): R50.9 - Fever, unspecified Status: Acute Assessment and Plan: Tylenol (3) LUIS E (obstructive sleep apnea): Code(s): G47.33 - Obstructive sleep apnea (adult) (pediatric) Status: Acute Assessment and Plan: Does not use home CPAP (4) Elevated d-dimer: Code(s): R79.89 - Other specified abnormal findings of blood chemistry Status: Acute Assessment and Plan: Venous Doppler pending Therapeutic Lovenox for possible DVT Quality VTE Prophylaxis VTE prophylaxis: mechanical ordered and pharmacologic ordered Hospitalist MIPS Advance Care Plan I have confirmed that the patient's Advanced Care Plan is present, code status is documented, or surrogate decision maker is listed in patient medical record.: Yes Medication Reconciliation I have utilized all available resources to obtain, update and review the pat ients current medications (includes all prescriptions, OTC, herbals, cannabis, and nutritional supplements).: Yes
[2024-11-13] MEDS: SODIUM CHLORIDE 0.9% IV 1,000 ML 100 ML IV CONT (18:10)
[2024-11-13] MEDS: VANCOMYCIN 1,500 MG/NS 500 ML 1,500 MG/500 ML BAG 250 MG IVPB (18:12)
[2024-11-13 18:16] VITALS: BMI 49.5
--- NOTE | 2024-11-13 18:23 | ADMGEN ---
This patient, Selwyn Castillo Jr., was admitted to [facility] Surg Room 328-01. Patient/family oriented to hospital policies and general routines including ID bracelet, bed and alarms, visiting hours, pain management, procedures, bathroom and other care routines, personal items, smoking policy, room service/diet, and visiting hours. Information on how to activate the Rapid Response Team has been discussed. Patient/Family are encouraged to report perceived risks to care and to ask questions if they do not understand what they are told or what they should do. Report from Hyacinth in ER.
[2024-11-13 18:24] LABS: D Dimer 0.78 ug/mL (<0.48)
[2024-11-13 18:29] VITALS: BP 130/80; PULSE 91; RESP 20; TEMP 37.5; O2SAT 97
[2024-11-13 20:00] VITALS: PULSE 100; RESP 18; O2SAT 96
[2024-11-13] MEDS: HYDROcodone/acetaminophen (*CRX) 5-325 MG TABLET 1 TAB PO (20:55)
[2024-11-13 22:00] VITALS: BP 132/86; PULSE 100; RESP 18; TEMP 36.8; O2SAT 96
[2024-11-13] MEDS: ENOXAPARIN 80 MG/0.8 ML SYRINGE 75 MG SUB-Q (22:52)
[2024-11-13] MEDS: ENOXAPARIN 100 MG/ML SYRINGE SUB-Q (22:52)
[2024-11-14 02:36] VITALS: O2SAT 96
[2024-11-14 05:49] VITALS: BP 122/82; PULSE 99; RESP 20; TEMP 36.1; O2SAT 93
[2024-11-14] MEDS: SODIUM CHLORIDE 0.9% IV 1,000 ML 100 ML IV CONT ×3 (06:14→21:59)
[2024-11-14] MEDS: VANCOMYCIN 1,500 MG/NS 500 ML 1,500 MG/500 ML BAG 250 MG IVPB ×2 (06:14→18:21)
[2024-11-14] MEDS: HYDROcodone/acetaminophen (*CRX) 5-325 MG TABLET 1 TAB PO ×3 (06:27→21:45)
[2024-11-14 06:33] LABS: Basophils Percent Auto 0.2 % (0.2-1.2); Eosinophils Percent Auto 0.3 % (0-4.4); Hematocrit 39.2 % (42.0-52.0); Hemoglobin 12.4 g/dL (14.0-18.0); Immature Granulocyte Absolute 0.05 K/mm3 (0.00-0.031); Immature Granulocyte Percent A 0.4 % (0-0.5); Lymphocytes Absolute Auto 0.94 K/mm3 (0.9-3.2); Lymphocytes Percent Auto 8.1 % (18.3-44.2); Mean Corpuscular HGB Conc 31.6 g/dl (32-36); Mean Corpuscular Hemoglobin 29.1 pg (26-34); Mean Platelet Volume 9.1 fl (7.4-10.4); Monocytes Absolute Auto 0.8 K/mm3 (0.1-0.6); Monocytes Percent Auto 6.5 % (2.6-8.5); Neutrophils Absolute Auto 9.9 K/mm3 (1.3-6.7); Neutrophils Percent Auto 84.5 % (45.5-73.1); Platelet Count Result 193 k/mm3 (150-375); Red Blood Count 4.26 M/mm3 (4.6-6.20); Red Cell Distribution Width 13.8 % (11.5-14.5); White Blood Count 11.7 K/mm3 (4.5-10.0)
[2024-11-14 06:40] LABS: Anion Gap 7 mmol/L (4-12); Blood Urea Nitrogen 14 mg/dL (9-20); Calcium 8.3 mg/dL (8.4-10.2); Carbon Dioxide 25 mmol/L (22-30); Chloride 101 mmol/L (98-107); Estimated CRCL calculation 124 ml/min; Estimated Glomerular Filt Rate > 60; Glucose 105 mg/dL (65-110); Potassium 3.9 mmol/L (3.4-5.0); Sodium 133 mmol/L (137-145)
[2024-11-14 08:00] VITALS: O2SAT 93
[2024-11-14] MEDS: ENOXAPARIN 100 MG/ML SYRINGE SUB-Q (10:23)
[2024-11-14] MEDS: ENOXAPARIN 80 MG/0.8 ML SYRINGE 75 MG SUB-Q (10:23)
--- NOTE | 2024-11-14 13:18 | P.PNIM_ITS ---
Progress Note: A&P Assessment and Plan (1) Cellulitis: Qualifiers: Laterality: right Site of cellulitis: extremity Site of cellulitis of extremity: lower extremity Qualified Code(s): L03.115 - Cellulitis of right lower limb Code(s): L03.90 - Cellulitis, unspecified Status: Inactive Assessment and Plan: A lower extremity, failed outpatient antibiotics due to nausea vomiting Blood cultures pending Continue Vancomycin (2) Fever: Code(s): R50.9 - Fever, unspecified Status: Acute Assessment and Plan: Tylenol (3) LUIS E (obstructive sleep apnea): Code(s): G47.33 - Obstructive sleep apnea (adult) (pediatric) Status: Acute Assessment and Plan: Continue home CPAP (4) Elevated d-dimer: Code(s): R79.89 - Other specified abnormal findings of blood chemistry Status: Acute Assessment and Plan: Venous Doppler pending on prohylactic AC, escalate to therapeutic if Venous doppler is positive Plan DVT prophylaxis on Sq lovenox Subjective Date/time seen: 11/14/24 13:18 Interval history: Comfortable at bedside Review of Systems Review of Systems: 12 systems were reviewed and are negativ e except for as per HPI. Exam Narrative: General: well appearing, appears stated age. HEENT: normocephalic, atraumatic. Mucous membranes moist. EOMI, PERRLA, bilateral sclera anicteric, no conjunctival injection. Neck supple without JVD, lymphadenopathy, or bruit. Respiratory: clear to ascultation bilaterally. No rales/rhonic/wheezes. Cardiovascular: Regular rate and rhythm, normal S1-S2 upon ascultation. No murmurs, rubs, or clicks. PMI is nondisplaced, capillary refill less than 3 second. Abdomen: Soft, round, no pulsatile masses, nondistended and nontender. No rebound, no guarding. No CVA tenderness, no hepatosplenomegaly. Bowel sounds present to all four quadrants. No high pitch or tinkling sounds, resonant to p ercussion. Extremities: No cyanosis, clubbing, or edema present. Pulses are palpable 2/2. Active ROM to all four extremities. Right Lower extremity erythema and swelling Neuro: Alert and orientated x 4. PERRLA. Cranial nerves 2-12 intact without focal deficit. Skin: see extremities' exam Psych: pleasant, cooperative, normal speech, normal affect, no hallucinations, no dysarthia Objective Data Vital Signs Vital Signs: Vital Signs - 24 hr 11/13/24 16:35 11/13/24 18:29 11/13/24 20:00 Temperature 100.6 F H 99.5 F Pulse Rate 108 H 91 100 Respiratory Rate 20 20 18 Blood Pressure 149/87 H 130/80 Pulse Oximetry 97 97 96 Oxygen Delivery Room Air Room Air Fraction of Inspired Oxygen 11/13/24 22:00 11/14/24 02:36 11/14/24 05:49 Temperature 98.2 F 96.9 F L Pulse Rate 100 99 Respiratory Rate 18 20 Blood Pressure 132/86 122/82 Pulse Oximetry 96 96 93 Oxygen Delivery Room Air Fraction of Inspired Oxygen 21 11/14/24 08:00 Temperature Pulse Rate Respiratory Rate Blood Pressure Pulse Oximetry 93 Oxygen Delivery Room Air Fraction of Inspired Oxygen Intake/Output Intake/Output: Intake & Output 11/11/24 11/12/24 11/13/24 11/14/24 23:59 23:59 23:59 23:59 Intake Total 500 2845 Balance 500 2845 Meds/Results Medications: Active Medications Generic Name Dose Route Start Last Admin Trade Name Freq PRN Reason Stop Dose Admin Acetaminophen 650 mg 11/13/24 17:26 Acetaminophen 325 Mg Tablet PO Q4H PRN Mild Pain (1-3) or Fever Hydrocodone Bitart/Acetaminophen 1 tab 11/13/24 17:52 11/14/24 11:57 Hydrocodone/Acetaminophen (*Crx) 5-325 Mg Tablet PO 1 tab Q4H PRN Administration Moderate Pain (4-6) Docusate Sodium 100 mg 11/14/24 09:00 11/14/24 08:05 Docusate Sodium 100 Mg Capsule PO Not Given DAILY ROXANN Enoxaparin Sodium 100 mg 11/13/24 22:00 11/14/24 10:23 Enoxaparin 100 Mg/Ml Syringe SUB-Q 100 mg Q12H ROXANN Administration Enoxaparin Sodium 75 mg 11/13/24 22:00 11/14/24 10:23 Enoxaparin 80 Mg/0.8 Ml Syringe SUB-Q 75 mg Q12H ROXANN Administration Vancomycin HCl 1,500 mg in 500 mls @ 250 mls/hr 11/14/24 06:00 11/14/24 06:14 Vancomycin 1,500 Mg/Ns 500 Ml IVPB 250 mls/hr Q12H ROXANN Administration Sodium Chloride 1,000 mls @ 100 mls/hr 11/13/24 17:55 11/14/24 11:59 Normal Saline Iv IV CONT 100 mls/hr .Q10H ROXANN Administration Ondansetron HCl 4 mg 11/13/24 17:26 Ondansetron Inj 4 Mg/2 Ml Vial IV PUSH Q4H PRN Nausea Labs Labs: Laboratory Results - last 24 hr 11/13/24 11/14/24 17:53 06:09 WBC 11.7 H RBC 4.26 L Hgb 12.4 L Hct 39.2 L MCV 92.0 MCH 29.1 MCHC 31.6 L RDW 13.8 Plt Count 193 MPV 9.1 Immature Gran % (Auto) 0.4 Neut % (Auto) 84.5 H Lymph % (Auto) 8.1 L Surry % (Auto) 6.5 Eos % (Auto) 0.3 Baso % (Auto) 0.2 Lymph # (Auto) 0.94 Surry # (Auto) 0.8 H Eos # (Auto) 0.0 Baso # (Auto) 0.0 Abs Immat Gran (auto) 0.05 H Absolute Neuts (auto) 9.9 H Absolute Nucleated RBC 0.000 Nucleated RBC % 0.0 D-Dimer 0.78 H Sodium 133 L Potassium 3.9 Chloride 101 Carbon Dioxide 25 Anion Gap 7 BUN 14 D Creatinine 1.04 Estim Creat Clear Calc 124 Estimated GFR > 60 Glucose 105 Calcium 8.3 L Quality VTE Prophylaxis VTE prophylaxis: mechanical ordered and pharmacologic ordered
[2024-11-14 14:00] VITALS: BP 119/72; PULSE 80; RESP 16; TEMP 36.1; O2SAT 93
[2024-11-14 19:41] VITALS: BP 135/76; PULSE 85; RESP 20; TEMP 37.5; O2SAT 98
[2024-11-14 20:00] VITALS: PULSE 85; RESP 20; O2SAT 98
[2024-11-14] MEDS: ACETAMINOPHEN/BUTALBITAL/CAFFEINE 325-50-40 MG TABLET (FIORICET) 1 TAB PO (21:47)
[2024-11-14] MEDS: SODIUM CHLORIDE 0.9% IV 1,000 ML 999 ML IV CONT (21:50)
[2024-11-15 04:34] VITALS: BP 106/77; PULSE 80; RESP 20; TEMP 36.8; O2SAT 98
[2024-11-15] MEDS: HYDROcodone/acetaminophen (*CRX) 5-325 MG TABLET 1 TAB PO (05:50)
[2024-11-15] MEDS: ACETAMINOPHEN/BUTALBITAL/CAFFEINE 325-50-40 MG TABLET (FIORICET) 1 TAB PO ×3 (05:53→18:00)
[2024-11-15 06:13] LABS: Estimated CRCL calculation 148 ml/min; Estimated Glomerular Filt Rate > 60
[2024-11-15 06:18] LABS: Vancomycin Trough 5.5 ug/mL (10.0-20.0)
[2024-11-15] MEDS: VANCOMYCIN 2,000 MG/NS 500 ML 2,000 MG/500 ML BAG 250 MG IVPB ×3 (06:45→22:06)
[2024-11-15] MEDS: DOCUSATE SODIUM 100 MG CAPSULE PO (09:09)
[2024-11-15] MEDS: ENOXAPARIN 40 MG/0.4 ML SYRINGE SUB-Q (09:09)
[2024-11-15] MEDS: SODIUM CHLORIDE 0.9% IV 1,000 ML 100 ML IV CONT ×2 (09:17→17:57)
[2024-11-15] MEDS: ACETAMINOPHEN 325 MG TABLET 650 MG PO (09:21)
[2024-11-15 13:17] VITALS: BP 135/80; PULSE 84; RESP 20; TEMP 36.6; O2SAT 98
--- NOTE | 2024-11-15 13:46 | P.PNIM_ITS ---
Progress Note: A&P Assessment and Plan (1) Cellulitis: Qualifiers: Laterality: right Site of cellulitis: extremity Site of cellulitis of extremity: lower extremity Qualified Code(s): L03.115 - Cellulitis of right lower limb Code(s): L03.90 - Cellulitis, unspecified Status: Inactive Assessment and Plan: A lower extremity, failed outpatient antibiotics due to nausea vomiting Blood cultures pending Continue Vancomycin Start ceftriaxone (2) Fever: Code(s): R50.9 - Fever, unspecified Status: Acute Assessment and Plan: Tylenol (3) LUIS E (obstructive sleep apnea): Code(s): G47.33 - Obstructive sleep apnea (adult) (pediatric) Status: Acute Assessment and Plan: Continue home CPAP (4) Elevated d-dimer: Code(s): R79.89 - Other specified abnormal findings of blood chemistry Status: Acute Assessment and Plan: Venous Doppler pending on prohylactic AC, escalate to therapeutic if Venous doppler is positive Plan DVT prophylaxis on Sq lovenox Subjective Date/time seen: 11/15/24 13:46 Interval history: Ordered HbA1c. Patient denies any diabetes. 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 Negative for DVT Review of Systems Review of Systems: 12 systems were reviewed and are negativ e except for as per HPI. Exam Narrative: General: well appearing, appears stated age. HEENT: normocephalic, atraumatic. Mucous membranes moist. EOMI, PERRLA, bilateral sclera anicteric, no conjunctival injection. Neck supple without JVD, lymphadenopathy, or bruit. Respiratory: clear to ascultation bilaterally. No rales/rhonic/wheezes. Cardiovascular: Regular rate and rhythm, normal S1-S2 upon ascultation. No murmurs, rubs, or clicks. PMI is nondisplaced, capillary refill less than 3 second. Abdomen: Soft, round, no pulsatile masses, nondistended and nontender. No rebound, no guarding. No CVA tenderness, no hepatosplenomegaly. Bowel sounds present to all four quadrants. No high pitch or tinkling sounds, resonant to percussion. Extremities: No cyanosis, clubbing, or edema present. Pulses are palpable 2/2. Active ROM to all four extremities. Right Lower extremity erythema and swelling Neuro: Alert and orientated x 4. PERRLA. Cranial nerves 2-12 intact without focal deficit. Skin: see extremities' exam Psych: pleasant, cooperative, normal speech, normal affect, no hallucinations, no dysarthia Objective Data Vital Signs Vital Signs: Vital Signs - 24 hr 11/14/24 14:00 11/14/24 19:41 11/14/24 20:00 Temperature 97 F L 99.5 F Pulse Rate 80 85 85 Respiratory Rate 16 20 20 Blood Pressure 119/72 135/76 Pulse Oximetry 93 98 98 Oxygen Delivery Room Air Fraction of Inspired Oxygen 21 11/15/24 04:34 11/15/24 08:00 Temperature 98.3 F Pulse Rate 80 Respiratory Rate 20 Blood Pressure 106/77 Pulse Oximetry 98 Oxygen Delivery Room Air Fraction of Inspired Oxygen Intake/Output Intake/Output: Intake & Output 11/12/24 11/13/24 11/14/24 11/15/24 23:59 23:59 23:59 23:59 Intake Total 500 6635 2740 Balance 500 6635 2740 Meds/Results Medications: Active Medications Generic Name Dose Route Start Last Admin Trade Name Freq PRN Reason Stop Dose Admin Acetaminophen 650 mg 11/13/24 17:26 11/15/24 09:21 Acetaminophen 325 Mg Tablet PO 650 mg Q4H PRN Administration Mild Pain (1-3) or Fever Acetaminophen/Butalbital/Caffeine 1 tab 11/14/24 21:01 11/15/24 12:56 Acetaminophen/Butalbital/Caffeine 325-50-40 Mg Tablet (Fioricet) PO 1 tab Q4H PRN Administration Headache Hydrocodone Bitart/Acetaminophen 1 tab 11/13/24 17:52 11/15/24 05:50 Hydrocodone/Acetaminophen (*Crx) 5-325 Mg Tablet PO 1 tab Q4H PRN Administration Moderate Pain (4-6) Docusate Sodium 100 mg 11/14/24 09:00 11/15/24 09:09 Docusate Sodium 100 Mg Capsule PO 100 mg DAILY ROXANN Administration Enoxaparin Sodium 40 mg 11/15/24 09:00 11/15/24 09:09 Enoxaparin 40 Mg/0.4 Ml Syringe SUB-Q 40 mg DAILY ROXANN Administration Sodium Chloride 1,000 mls @ 125 mls/hr 11/13/24 17:55 11/15/24 09:17 Normal Saline Iv IV CONT 100 mls/hr .Q8H ROXANN Administration Vancomycin HCl 2,000 mg in 500 mls @ 250 mls/hr 11/15/24 07:00 11/15/24 08:45 Vancomycin 2,000 Mg/Ns 500 Ml IVPB Infused Q8H ROXANN Infusion Ondansetron HCl 4 mg 11/13/24 17:26 Ondansetron Inj 4 Mg/2 Ml Vial IV PUSH Q4H PRN Nausea Radiology Results: ITS Impressions Venous Doppler Study 11/14/24 13:49 IMPRESSION: 1. No deep venous thrombosis. Labs Labs: Laboratory Results - last 24 hr 11/15/24 05:53 Creatinine 0.86 Estim Creat Clear Calc 148 Estimated GFR > 60 Vancomycin Trough 5.5 L Quality VTE Prophylaxis VTE prophylaxis: mechanical ordered and pharmacologic ordered Hospitalist MIPS Advance Care Plan I have confirmed that the patient's Advanced Care Plan is present, code status is documented, or surrogate decision maker is listed in patient medical record.: Yes Medication Reconciliation I have utilized all available resources to obtain, update and review the patients current medications (includes all prescriptions, OTC, herbals, cannabis, and nutritional supplements).: Yes
[2024-11-15 17:02] LABS: MRSA (PCR) NOT DETECTED (NOT DETECTE)
[2024-11-15] MEDS: cefTRIAXone 2 GM/NS 100 ML 2 GM/100 ML BAG IVPB (17:50)
[2024-11-15 19:58] VITALS: BP 122/82; PULSE 89; RESP 16; TEMP 36.6; O2SAT 98
[2024-11-16] MEDS: ACETAMINOPHEN/BUTALBITAL/CAFFEINE 325-50-40 MG TABLET (FIORICET) 1 TAB PO ×4 (03:47→20:19)
[2024-11-16] MEDS: SODIUM CHLORIDE 0.9% IV 1,000 ML 100 ML IV CONT (03:48)
[2024-11-16 05:44] VITALS: BP 135/93; PULSE 85; RESP 16; TEMP 36.1; O2SAT 95
[2024-11-16] MEDS: HYDROcodone/acetaminophen (*CRX) 5-325 MG TABLET 1 TAB PO ×3 (06:02→17:10)
[2024-11-16 06:22] LABS: Hematocrit 37.7 % (42.0-52.0); Hemoglobin 12.1 g/dL (14.0-18.0); Mean Corpuscular HGB Conc 32.1 g/dl (32-36); Mean Corpuscular Hemoglobin 28.8 pg (26-34); Mean Corpuscular Volume 89.8 fl (80-100); Mean Platelet Volume 8.6 fl (7.4-10.4); Platelet Count Result 208 k/mm3 (150-375); Red Cell Distribution Width 13.5 % (11.5-14.5); White Blood Count 6.8 K/mm3 (4.5-10.0)
[2024-11-16 06:55] LABS: Alanine Aminotransferase 43 U/L (6-50); Albumin Level 3.6 g/dL (3.5-5.1); Alkaline Phosphatase 73 U/L (38-126); Anion Gap 6 mmol/L (4-12); Aspartate Amino Transferase 40 U/L (17-59); Bilirubin,Total 0.4 mg/dL (0.2-1.3); Blood Urea Nitrogen 7 mg/dL (9-20); Calcium 8.5 mg/dL (8.4-10.2); Carbon Dioxide 27 mmol/L (22-30); Chloride 104 mmol/L (98-107); Estimated CRCL calculation 155 ml/min; Estimated Glomerular Filt Rate > 60; Glucose 95 mg/dL (65-110); Potassium 4.2 mmol/L (3.4-5.0); Sodium 137 mmol/L (137-145)
[2024-11-16 06:56] LABS: Vancomycin Trough 12.4 ug/mL (10.0-20.0)
[2024-11-16 07:23] LABS: Hemoglobin A1C 5.5 % (<5.7)
[2024-11-16] MEDS: ENOXAPARIN 40 MG/0.4 ML SYRINGE SUB-Q (08:47)
[2024-11-16] MEDS: VANCOMYCIN 2,000 MG/NS 500 ML 2,000 MG/500 ML BAG 250 MG IVPB ×2 (08:49→09:09)
--- NOTE | 2024-11-16 11:30 | P.CDI_ITS ---
CDI Query Clarification Request Patient with a BMI of 49.5 please provide a diagnosis to accompany this finding: * Overweight * Obesity * Morbid Obesity * Other/Unknown <Rebeca Oleary RN - Last Filed: 11/16/24 11:31> Clarified Diagnosis Clarified Diagnosis: Morbid Obesity <Darrius Holbrook MD - Last Filed: 11/16/24 16:54>
[2024-11-16] MEDS: AMOXICILLIN/CLAVULANATE K 875-125 MG TAB 1 TABLET PO ×2 (12:20→20:20)
[2024-11-16] MEDS: LINEZOLID 600 MG TABLET PO ×2 (12:21→20:20)
[2024-11-16 14:00] VITALS: BP 140/98; PULSE 82; RESP 20; TEMP 36.1; O2SAT 99
--- NOTE | 2024-11-16 16:54 | P.PNIM_ITS ---
Progress Note: A&P Assessment and Plan (1) Cellulitis: Qualifiers: Laterality: right Site of cellulitis: extremity Site of cellulitis of extremity: lower extremity Qualified Code(s): L03.115 - Cellulitis of right lower limb Code(s): L03.90 - Cellulitis, unspecified Status: Inactive Assessment and Plan: A lower extremity, failed outpatient antibiotics due to nausea vomiting Blood cultures pending S/P Vancomycin and ceftriaxone Started Augmentin and Zyvox (2) Fever: Code(s): R50.9 - Fever, unspecified Status: Acute Assessment and Plan: Tylenol (3) LUIS E (obstructive sleep apnea): Code(s): G47.33 - Obstructive sleep apnea (adult) (pediatric) Status: Acute Assessment and Plan: Continue home CPAP (4) Elevated d-dimer: Code(s): R79.89 - Other specified abnormal findings of blood chemistry Status: Acute Assessment and Plan: Venous Doppler pending on prohylactic AC, escalate to therapeutic if Venous doppler is positive Plan DVT prophylaxis on Sq lovenox Subjective Date/time seen: 11/16/24 16:54 Interval history: Patient continues to improve. Switch to oral medications Augmentin and Zyvox. Monitor for day or 2. Patient reports he was able to bend his leg which he was previously not able to do Review of Systems Review of Systems: 12 systems were reviewed and are negativ e except for as per HPI. Exam Narrative: General: well appearing, appears stated age. HEENT: normocephalic, atraumatic. Mucous membranes moist. EOMI, PERRLA, bilateral sclera anicteric, no conjunctival injection. Neck supple without JVD, lymphadenopathy, or bruit. Respiratory: clear to ascultation bilaterally. No rales/rhonic/wheezes. Cardiovascular: Regular rate and rhythm, normal S1-S2 upon ascultation. No murmurs, rubs, or clicks. PMI is nondisplaced, capillary refill less than 3 second. Abdomen: Soft, round, no pulsatile masses, nondistended and nontender. No rebound, no guarding. No CVA tenderness, no hepatosplenomegaly. Bowel sounds present to all four quadrants. No high pitch or tinkling sounds, resonant to p ercussion. Extremities: No cyanosis, clubbing, or edema present. Pulses are palpable 2/2. Active ROM to all four extremities. Right Lower extremity erythema and swelling Neuro: Alert and orientated x 4. PERRLA. Cranial nerves 2-12 intact without focal deficit. Skin: see extremities' exam Psych: pleasant, cooperative, normal speech, normal affect, no hallucinations, no dysarthia Objective Data Vital Signs Vital Signs: Vital Signs - 24 hr 11/15/24 19:58 11/16/24 05:44 11/16/24 08:00 Temperature 97.8 F 96.9 F L Pulse Rate 89 85 Respiratory Rate 16 16 Blood Pressure 122/82 135/93 H Pulse Oximetry 98 95 Oxygen Delivery Room Air 11/16/24 14:00 Temperature 97 F L Pulse Rate 82 Respiratory Rate 20 Blood Pressure 140/98 H Pulse Oximetry 99 Oxygen Delivery Intake/Output Intake/Output: Intake & Output 11/13/24 11/14/24 11/15/24 11/16/24 23:59 23:59 23:59 23:59 Intake Total 500 7635 7236.7 2965 Balance 500 7635 7236.7 2965 Meds/Results Medications: Active Medications Generic Name Dose Route Start Last Admin Trade Name Freq PRN Reason Stop Dose Admin Acetaminophen 650 mg 11/13/24 17:26 11/15/24 09:21 Acetaminophen 325 Mg Tablet PO 650 mg Q4H PRN Administration Mild Pain (1-3) or Fever Acetaminophen/Butalbital/Caffeine 1 tab 11/14/24 21:01 11/16/24 14:00 Acetaminophen/Butalbital/Caffeine 325-50-40 Mg Tablet (Fioricet) PO 1 tab Q4H PRN Administration Headache Hydrocodone Bitart/Acetaminophen 1 tab 11/13/24 17:52 11/16/24 12:21 Hydrocodone/Acetaminophen (*Crx) 5-325 Mg Tablet PO 1 tab Q4H PRN Administration Moderate Pain (4-6) Amoxicillin/Clavulanate Potassium 1 tablet 11/16/24 11:15 11/16/24 12:20 Amoxicillin/Clavulanate K 875-125 Mg Tab PO 1 tablet Q12HR ROXANN Administration Docusate Sodium 100 mg 11/14/24 09:00 11/16/24 08:50 Docusate Sodium 100 Mg Capsule PO Not Given DAILY ROXANN Enoxaparin Sodium 40 mg 11/15/24 09:00 11/16/24 08:47 Enoxaparin 40 Mg/0.4 Ml Syringe SUB-Q 40 mg DAILY ROXANN Administration Linezolid 600 mg 11/16/24 11:30 11/16/24 12:21 Linezolid 600 Mg Tablet PO 600 mg Q12HR ROXANN Administration Ondansetron HCl 4 mg 11/13/24 17:26 Ondansetron Inj 4 Mg/2 Ml Vial IV PUSH Q4H PRN Nausea Radiology Results: ITS Impressions Venous Doppler Study 11/14/24 13:49 IMPRESSION: 1. No deep venous thrombosis. Labs Labs: Laboratory Results - last 24 hr 11/15/24 11/16/24 15:35 06:02 WBC 6.8 RBC 4.20 L Hgb 12.1 L Hct 37.7 L MCV 89.8 MCH 28.8 MCHC 32.1 RDW 13.5 Plt Count 208 MPV 8.6 Sodium 137 Potassium 4.2 Chloride 104 Carbon Dioxide 27 Anion Gap 6 BUN 7 L D Creatinine 0.82 Estim Creat Clear Calc 155 Estimated GFR > 60 Glucose 95 Hemoglobin A1c 5.5 Calcium 8.5 Total Bilirubin 0.4 AST 40 ALT 43 Alkaline Phosphatase 73 Total Protein 7.0 Albumin 3.6 Nasal MRSA (PCR) Not detected Vancomycin Trough 12.4 Quality VTE Prophylaxis VTE prophylaxis: mechanical ordered and pharmacologic ordered Hospitalist MIPS Advance Care Plan I have confirmed that the patient's Advanced Care Plan is present, code status is documented, or surrogate decision maker is listed in patient medical record.: Yes Medication Reconciliation I have utilized all available resources to obtain, update and review the patients current medications (includes all prescriptions, OTC, herbals, cannabis, and nutritional supplements).: Yes
[2024-11-16 21:24] VITALS: BP 139/87; PULSE 82; RESP 18; TEMP 37.2; O2SAT 99
[2024-11-17] MEDS: HYDROcodone/acetaminophen (*CRX) 5-325 MG TABLET 1 TAB PO (02:23)
[2024-11-17 05:49] VITALS: BP 130/76; PULSE 92; RESP 18; TEMP 36.3; O2SAT 94
[2024-11-17 07:08] LABS: Estimated CRCL calculation 148 ml/min; Estimated Glomerular Filt Rate > 60
[2024-11-17 07:20] LABS: Vancomycin Trough 5.3 ug/mL (10.0-20.0)
[2024-11-17] MEDS: AMOXICILLIN/CLAVULANATE K 875-125 MG TAB 1 TABLET PO ×2 (09:06→21:11)
[2024-11-17] MEDS: LINEZOLID 600 MG TABLET PO ×2 (09:06→21:11)
[2024-11-17] MEDS: ACETAMINOPHEN/BUTALBITAL/CAFFEINE 325-50-40 MG TABLET (FIORICET) 1 TAB PO (09:07)
[2024-11-17] MEDS: ENOXAPARIN 40 MG/0.4 ML SYRINGE SUB-Q (09:07)
[2024-11-17 14:00] VITALS: BP 150/89; PULSE 80; RESP 18; TEMP 36.7; O2SAT 99
--- NOTE | 2024-11-17 17:54 | PM.IMPN ---
Progress Note: A&P Assessment and Plan (1) Cellulitis: Qualifiers: Laterality: right Site of cellulitis: extremity Site of cellulitis of extremity: lower extremity Qualified Code(s): L03.115 - Cellulitis of right lower limb Code(s): L03.90 - Cellulitis, unspecified Status: Inactive Assessment and Plan: A lower extremity, failed outpatient antibiotics due to nausea vomiting Blood cultures pending S/P Vancomycin and ceftriaxone Started Augmentin and Zyvox (2) Fever: Code(s): R50.9 - Fever, unspecified Status: Acute Assessment and Plan: Tylenol (3) LUIS E (obstructive sleep apnea): Code(s): G47.33 - Obstructive sleep apnea (adult) (pediatric) Status: Acute Assessment and Plan: Continue home CPAP (4) Elevated d-dimer: Code(s): R79.89 - Other specified abnormal findings of blood chemistry Status: Acute Assessment and Plan: Venous Doppler pending on prohylactic AC, escalate to therapeutic if Venous doppler is positive Plan DVT prophylaxis on Sq lovenox Subjective Date/time seen: 11/17/24 17:54 Interval history: Patient is able to walk a few steps today. Possible discharge tomorrow. Will do ultrasound lower extremity to rule out DVT. Review of Systems Review of Systems: 12 systems were reviewed and are negative except for as per HPI. Exam Narrative: General: well appearing, appears stated age. HEENT: normocephalic, atraumatic. Mucous membranes moist. EOMI, PERRLA, bilateral sclera anicteric, no conjunctival injection. Neck supple without JVD, lymphadenopathy, or bruit. Respiratory: clear to ascultation bilaterally. No rales/rhonic/wheezes. Cardiovascular: Regular rate and rhythm, normal S1-S2 upon ascultation. No murmurs, rubs, or clicks. PMI is nondisplaced, capillary refill less than 3 second. Abdomen: Soft, round, no pulsatile masses, nondistended and nontender. No rebound, no guarding. No CVA tenderness, no hepatosplenomegaly. Bowel sounds present to all four quadrants. No high pitch or tinkling sounds, resonant to percussion. Extremities: No cyanosis, clubbing, or edema present. Pulses are palpable 2/2. Active ROM to all four extremities. Right Lower extremity erythema and swelling Neuro: Alert and orientated x 4. PERRLA. Cranial nerves 2-12 intact without focal deficit. Skin: see extremities' exam Psych: pleasant, cooperative, normal speech, normal affect, no hallucinations, no dysarthia Objective Data Vital Signs Vital Signs: Vital Signs - 24 hr 11/16/24 21:24 11/17/24 05:49 11/17/24 09:00 Temperature 98.9 F 97.4 F L Pulse Rate 82 92 Respiratory Rate 18 18 Blood Pressure 139/87 130/76 Pulse Oximetry 99 94 Oxygen Delivery Room Air 11/17/24 14:00 Temperature 98.0 F Pulse Rate 80 Respiratory Rate 18 Blood Pressure 150/89 H Pulse Oximetry 99 Oxygen Delivery Intake/Output Intake/Output: Intake & Output 11/14/24 11/15/24 11/16/24 11/17/24 23:59 23:59 23:59 23:59 Intake Total 7635 7236.7 6205 1948 Balance 7635 7236.7 6205 1948 Meds/Results Medications: Active Medications Generic Name Dose Route Start Last Admin Trade Name Freq PRN Reason Stop Dose Admin Acetaminophen 650 mg 11/13/24 17:26 11/15/24 09:21 Acetaminophen 325 Mg Tablet PO 650 mg Q4H PRN Administration Mild Pain (1-3) or Fever Acetaminophen/Butalbital/Caffeine 1 tab 11/14/24 21:01 11/17/24 09:07 Acetaminophen/Butalbital/Caffeine 325-50-40 Mg Tablet (Fioricet) PO 1 tab Q4H PRN Administration Headache Hydrocodone Bitart/Acetaminophen 1 tab 11/13/24 17:52 11/17/24 02:23 Hydrocodone/Acetaminophen (*Crx) 5-325 Mg Tablet PO 1 tab Q4H PRN Administration Moderate Pain (4-6) Amoxicillin/Clavulanate Potassium 1 tablet 11/16/24 11:15 11/17/24 09:06 Amoxicillin/Clavulanate K 875-125 Mg Tab PO 1 tablet Q12HR ROXANN Administration Docusate Sodium 100 mg 11/14/24 09:00 11/17/24 09:00 Docusate Sodium 100 Mg Capsule PO Not Given DAILY ROXANN Enoxaparin Sodium 40 mg 11/15/24 09:00 11/17/24 09:07 Enoxaparin 40 Mg/0.4 Ml Syringe SUB-Q 40 mg DAILY ROXANN Administration Linezolid 600 mg 11/16/24 11:30 11/17/24 09:06 Linezolid 600 Mg Tablet PO 600 mg Q12HR ROXANN Administration Ondansetron HCl 4 mg 11/13/24 17:26 Ondansetron Inj 4 Mg/2 Ml Vial IV PUSH Q4H PRN Nausea Radiology Results: ITS Impressions Venous Doppler Study 11/14/24 13:49 IMPRESSION: 1. No deep venous thrombosis. Labs Labs: Laboratory Results - last 24 hr 11/17/24 06:55 Creatinine 0.86 Estim Creat Clear Calc 148 Estimated GFR > 60 Vancomycin Trough 5.3 L Quality VTE Prophylaxis VTE prophylaxis: mechanical ordered and pharmacologic ordered Hospitalist [facility] Advance Care Plan I have confirmed that the patient's Advanced Care Plan is present, code status is documented, or surrogate decision maker is listed in patient medical record.: Yes Medication Reconciliation I have utilized all available resources to obtain, update and review the patients current medications (includes all prescriptions, OTC, herbals, cannabis, and nutritional supplements).: Yes
[2024-11-17 20:00] VITALS: PULSE 80; RESP 18; O2SAT 98
[2024-11-17 20:25] VITALS: BP 160/98; PULSE 80; RESP 18; TEMP 36.6; O2SAT 98
[2024-11-18 05:10] VITALS: BP 148/90; PULSE 77; RESP 20; TEMP 36.7; O2SAT 95
[2024-11-18] MEDS: ACETAMINOPHEN/BUTALBITAL/CAFFEINE 325-50-40 MG TABLET (FIORICET) 1 TAB PO ×2 (05:25→09:21)
[2024-11-18 06:35] LABS: Hematocrit 38.7 % (42.0-52.0); Hemoglobin 12.2 g/dL (14.0-18.0); Mean Corpuscular HGB Conc 31.5 g/dl (32-36); Mean Corpuscular Hemoglobin 28.8 pg (26-34); Mean Corpuscular Volume 91.5 fl (80-100); Mean Platelet Volume 9.6 fl (7.4-10.4); Platelet Count Result 224 k/mm3 (150-375); Red Blood Count 4.23 M/mm3 (4.6-6.20); Red Cell Distribution Width 13.5 % (11.5-14.5); White Blood Count 9.1 K/mm3 (4.5-10.0)
[2024-11-18 06:55] LABS: Alanine Aminotransferase 111 U/L (6-50); Albumin Level 3.8 g/dL (3.5-5.1); Alkaline Phosphatase 85 U/L (38-126); Anion Gap 8 mmol/L (4-12); Aspartate Amino Transferase 86 U/L (17-59); Bilirubin,Total 0.5 mg/dL (0.2-1.3); Blood Urea Nitrogen 11 mg/dL (9-20); Calcium 9.3 mg/dL (8.4-10.2); Carbon Dioxide 27 mmol/L (22-30); Chloride 102 mmol/L (98-107); Estimated CRCL calculation 145 ml/min; Estimated Glomerular Filt Rate > 60; Glucose 96 mg/dL (65-110); Potassium 4.8 mmol/L (3.4-5.0); Sodium 137 mmol/L (137-145)
--- NOTE | 2024-11-18 08:53 | PM.DS ---
DS: Admitting Diagnosis Discharge Date 11/18/2024 Admitting Diagnosis Cellulitis- Right Leg Cellulitis DS: Discharge Diagnosis Discharge Diagnosis (1) Cellulitis: Qualifiers: Laterality: right Site of cellulitis: extremity Site of cellulitis of extremity: lower extremity Qualified Code(s): L03.115 - Cellulitis of right lower limb Code(s): L03.90 - Cellulitis, unspecified Status: Inactive Assessment and Plan: A lower extremity, failed outpatient antibiotics due to nausea vomiting Blood cultures pending S/P Vancomycin and ceftriaxone Started Augmentin and Zyvox (2) Fever: Code(s): R50.9 - Fever, unspecified Status: Acute Assessment and Plan: Tylenol (3) LUIS E (obstructive sleep apnea): Code(s): G47.33 - Obstructive sleep apnea (adult) (pediatric) Status: Acute Assessment and Plan: Continue home CPAP (4) Elevated d-dimer: Code(s): R79.89 - Other specified abnormal findings of blood chemistry Status: Acute Assessment and Plan: Venous Doppler pending on prohylactic AC, escalate to therapeutic if Venous doppler is positive DS: Summary Hospital Course Hospital Course: 53-year-old male with past medical history of LUIS E presents to the hospital with cellulitis of his leg. Patient originally presented to the ED this morning and was treated with outpatient antibiotics and went home. This afternoon he return due to nausea vomiting and a fever and worsening cellulitis of right lower leg. Patient complains of redness is going up his leg and has definitely increased since he has left the emergency room. Patient endorses rigors, nausea and vomiting. Lab work showed leukocytosis at 15, anemia hemoglobin 13.6, sodium of 132, BUN of 21, D-dimer elevated. Patient was initially started on vancomycin and switch to Augmentin and Zyvox. Currently his cellulitis in improving. Initial DVT was negative. Today we will repeat the ultrasound of lower extremity defer discharge to rule out DVT since patient was not moving much for past few days. Patient reports yesterday he was able to move and bend his legs which he was not able to do it before. On the day of discharge, the patient was seen and examined. Vital signs were stable. Physical exam were stable and labs were reviewed at length. Discharge instructions, medications, and follow-up appointments were discussed with the patient at length and all day questions were answered. ER warnings were given. Status at Discharge Cognitive/behavioral status at discharge: Stable Time Spent with Patient Time attestation: Total time spent providing and/or coordinating discharge services: 45 minutes Exam Narrative: General: well appearing, appears stated age. HEENT: normocephalic, atraumatic. Mucous membranes moist. EOMI, PERRLA, bilateral sclera anicteric, no conjunctival injection. Neck supple without JVD, lymphadenopathy, or bruit. Respiratory: clear to ascultation bilaterally. No rales/rhonic/wheezes. Cardiovascular: Regular rate and rhythm, normal S1-S2 upon ascultation. No murmurs, rubs, or clicks. PMI is nondisplaced, capillary refill less than 3 second. Abdomen: Soft, round, no pulsatile masses, nondistended and nontender. No rebound, no guarding. No CVA tenderness, no hepatosplenomegaly. Bowel sounds present to all four quadrants. No high pitch or tinkling sounds, resonant to percussion. Extremities: No cyanosis, clubbing, or edema present. Pulses are palpable 2/2. Active ROM to all four extremities. Right Lower extremity erythema and swelling Neuro: Alert and orientated x 4. PERRLA. Cranial nerves 2-12 intact without focal deficit. Skin: see extremities' exam Psych: pleasant, cooperative, normal speech, normal affect, no hallucinations, no dysarthia DS: Data Data Completed and Pending Labs on day of discharge: Labs from last 24 hours 11/18/24 06:18 WBC 9.1 RBC 4.23 L Hgb 12.2 L Hct 38.7 L MCV 91.5 MCH 28.8 MCHC 31.5 L RDW 13.5 Plt Count 224 MPV 9.6 Sodium 137 Potassium 4.8 Chloride 102 Carbon Dioxide 27 Anion Gap 8 BUN 11 Creatinine 0.88 Estim Creat Clear Calc 145 Estimated GFR > 60 Glucose 96 Calcium 9.3 Total Bilirubin 0.5 AST 86 H ALT 111 H Alkaline Phosphatase 85 Total Protein 7.0 Albumin 3.8 Imaging Radiologist's impression: ITS Impressions Venous Doppler Study 11/14/24 13:49 IMPRESSION: 1. No deep venous thrombosis. Discharge Plan Discharge Attending physician on discharge: Darrius Holbrook Discharging Clinician: Darrius Holbrook Anticipated Discharge Date/Time: 11/18/24 09:04 Patient Disposition: Home Activity: as tolerated Diet: heart healthy Discharge Instructions: Please return to ED if redness/tenderness worsens. Patient Instructions: Antibiotic Form Patient Language: Belarusian Stand Alone Forms: General Discharge Information, Work/School Release IP Follow-up/Referrals: Osmany Bhakta MD [Primary Care Provider] - Discharge Medications: New linezolid 600 mg Tablet 600 mg PO Q12HR Qty: 25 0RF Rx Instructions: Please complete the course on 11/27/2024 amoxicillin-pot clavulanate 875-125 mg tablet 1 tablet PO Q12H Qty: 25 0RF Rx Instructions: Please complete the course on 11/27/2024 Saccharomyces boulardii [Florastor] 250 mg capsule 250 mg PO BID Qty: 30 0RF Discontinued cephalexin 500 mg capsule 500 mg PO Q6H 5 Days Qty: 20 0RF sulfamethoxazole-trimethoprim 800-160 mg tablet 1 tablet PO Q12H 5 Days Qty: 10 0RF Date of admission: 11/14/24 10:20 Primary Care Provider: Osmany Bhakta Admitting Provider: Lance Lee Attending physician on admission: Lance Lee Condition: Stable
[2024-11-18] MEDS: ENOXAPARIN 40 MG/0.4 ML SYRINGE SUB-Q (09:11)
[2024-11-18] MEDS: LINEZOLID 600 MG TABLET PO (09:11)
[2024-11-18] MEDS: AMOXICILLIN/CLAVULANATE K 875-125 MG TAB 1 TABLET PO (09:11)
== END 2024-11-18 12:30 | disposition home or self-care (01) | DRG 603 ==
LOC: ANHED 17:07 → ANH3MEDSUR 17:47
PROVIDERS: Nurse Practitioner Gerontology; Admitting Provider Internal Medicine; Emergency Provider Student in an Organized Health Care Education/Training Program; PCP Emergency Medicine; Visit Provider General Practice
DX: L03.115 Cellulitis of right lower limb (principal); Z68.42 Body mass index [BMI] 45.0-49.9, adult; G47.33 Obstructive sleep apnea (adult) (pediatric); E66.01 Morbid (severe) obesity due to excess calories; E55.9 Vitamin D deficiency, unspecified; R79.89 Other specified abnormal findings of blood chemistry; Z87.891 Personal history of nicotine dependence
CPT/HCPCS: 36415; 80048; 80053; 80202; 82565; 83036; 85025; 85027; 85380; 87641; 93970; 93971; 96365; 96366; 99285; A9270; G0378; J0696; J1650; J3370; J7030

== ENCOUNTER 2024-12-08 13:29 | Outpatient (CLI) | payer OTHER, SELFPAY ==
--- NOTE | ~2024-12-08 | US_ITS ---
US art doppler w press LE BI INDICATION: Cellulitis of the lower extremity TECHNIQUE: Segmental pressures and plethysmographic and Doppler waveforms of the brachial and lower e xtremity arteries were obtained. COMPARISON: None. FINDINGS: Right and left brachial artery pressures of 154 mm Hg and 143 mm Hg, respectively, are concordant (no rmal difference <= 30 mmHg). There is biphasic flow in the right lower extremity arteries. There is t riphasic flow in the left lower extremity arteries. The right ankle-brachial index (HEAVENLY) is 1.12 (normal >= 0.9-1.0). The right great toe-brachial index (TBI) is 0.97 (normal >= 0.60). The left HEAVENLY is 1.1. The left TBI is 0.96. IMPRESSION: 1. Normal ankle-brachial indices. Reviewed, dictated and finalized at location B.
--- OUTSIDE RECORDS SUMMARY | 2024-12-08 14:08 | XMS_ITS | Clinical Summary ---
Author Organization [facility] [address] Address [address] [place] [address] Care Team Providers Care Medical Billing Specialist Name Role Phone Sb Harris MD Primary Care Provider [phone] Allergies No known active allergies Medications No [...] on file Legal Sex Male 2:47 PM CUSTOMS INSPECTOR Gender Identity Male 07/17/2020 12:41 PM CUSTOMS INSPECTOR Sexual Orientation Straight 07/17/2020 12 :41 PM CUSTOMS INSPECTOR Obstetrics History Last Filed Vital Signs Vital Sign Reading Time Taken Comments Blood Pressure 132/84 07/19/2020 3:12 PM CUSTOMS INSPECTOR Pulse 85 07/19/2020 3:12 PM CUSTOMS INSPECTOR Temperature 36.5 C (97.7 F) 07/19/2020 3:12 PM CUSTOMS INSPECTOR Respiratory Rate - - Oxygen Saturation - - Inhaled Oxygen Concentration - - Weight 161.7 kg (356 lb 6.4 oz) 07/19/2020 3:12 PM CUSTOMS INSPECTOR Height 188 cm (6' 2) 07/19/2020 3:12 PM CUSTOMS INSPECTOR Body Mass Index 45.76 07/19/2020 3:12 PM CUSTOMS INSPECTOR Plan of Treatment Not on file Insurance [facility] [facility] H[facility]/PPO Address: [address] [place] [address] [employer] H[facility]/PPO Address: [address] [address] [place] [address] Care Teams Medical Billing Specialist Relationship Specialty Start Date End Date Sb Harris MD [address] [facility] [address] [place] [address] PCP - General 06/18/18
--- OUTSIDE RECORDS SUMMARY | 2024-12-08 14:08 | XMS_ITS | Patient Health Record ---
Author Organization [employer] [facility] Address [address] [place] [address] Care Team Providers Care Medical Aide Name Role Phone Linneaevangelista Osmany Primary Care Provider Linda Lerma MD, Benitez Unavailable ALLERGIES No Known Allergies REASON FOR REFERRAL No Information IMMUNIZATIONS Vaccine Route Administration Date Status Comme nts Influenza Unknown 2022 Refused pneumoccocal Unknown 2022 Refused SOCIAL HISTORY Tobacco Use: Social History Observation Description Date Details (start date - stop date) Never Smoker NA - NA Sex Assigned At : Social History Observation Description Sex Assigned At Unknown Tobacco Use: Question Answer Notes Patient is a: nonsmoker Alcohol screening: Question Answer Notes Did you have a drink containing alcohol in the p ast year? No Points 0 Interpretation Negative PROBLEMS Problem Type ICD Code Onset Dates Problem Status W/U Status Risk SNOMED Code Notes Problem Localized osteoarthritis of left lower leg (M17.12) 12/20/19 Active confirmed Osteoarthritis o f knee (466736995) Problem Morbid obesity (E66.01) 12/20/19 Active confirmed Morbid obesity (763268475) Problem Body mass index (BMI) 50-59.9, adult (Z68.43) 12/20/19 Active confirmed Body mass index 40+ - morbidly obese (794473831) PLAN OF TREATMENT No Information Insurance Providers Payer Name Payer Address Payer Phone Subscriber Number Group Number Insured Name Patient Relationship to Insured Coverage Start Date Coverage End Date [facility] [address] [address] [place] [address] [phone] [id number] Selwyn Castillo Self - patient is the insured
--- OUTSIDE RECORDS SUMMARY | 2024-12-08 14:08 | XMS_ITS | Referral Summary ---
Author Organization [facility] Building [address] Address [address] [place] [address] Care Team Providers Care Forest Fire Fighter Name Role Phone Sb Harris MD Primary Care Provider [phone] Allergies No known active allergies Medications No known medications Active Problems No known active problems Social History Tobacco Use Types Packs/Day Years Used Date Smoking Tobacco: Former Smokeless Tobacco: Never Personal Safety Answer Date Recorded Getting School Help Needed Not on file 09/11 Sex and Gender Information Value Date Recorded Sex Assigned at Not on file Legal Sex Male 2:47 PM ENGAGEMENT LIAISON Gender Identity Male 07/17/2020 12:41 PM ENGAGEMENT LIAISON Sexual Orientation Straight 07/17/2020 12 :41 PM ENGAGEMENT LIAISON Last Filed Vital Signs Vital Sign Reading Time Taken Comments Blood Pressure 132/84 07/19/2020 3:12 PM ENGAGEMENT LIAISON Pulse 85 07/19/2020 3:12 PM ENGAGEMENT LIAISON Temperature 36.5 C (97.7 F) 07/19/2020 3:12 PM ENGAGEMENT LIAISON Respiratory Rate - - Oxygen Saturation - - Inhaled Oxygen Concentration - - Weight 161.7 kg (356 lb 6.4 oz) 07/19/2020 3:12 PM ENGAGEMENT LIAISON Height 188 cm (6' 2) 07/19/2020 3:12 PM ENGAGEMENT LIAISON Body Mass Index 45.76 07/19/2020 3:12 PM ENGAGEMENT LIAISON Plan of Treatment Not on file Insurance [facility] CHOICE PLUS CHOICE PLUS Care Teams Forest Fire Fighter Relationship Specialty Start Date End Date Sb Harris MD [address] [facility] [address] [place] [address] PCP - General 06/18/18
== END 2024-12-08 13:30 | disposition home or self-care (01) ==
LOC: CHSIMG 13:31
PROVIDERS: PCP Emergency Medicine; Visit Provider Emergency Medicine
DX: L03.119 Cellulitis of unspecified part of limb (principal)
CPT/HCPCS: 93923